=== PATIENT | male | born 1960 | race Caucasian/White ===

== ENCOUNTER → 2018-02-18 | Outpatient (CLI) | payer OTHER ==
[2018-02-18 12:01] LABS: ADD MAN DIFF? NO
[2018-02-18 12:20] LABS: BASO # 0.1 x10^3/uL (0.0-0.2); BASO % 1 % (0-3); EOS # 0.2 x10^3/uL (0.0-0.7); EOS % 3 % (0-3); HEMATOCRIT 41.3 % (39.0-53.0); HEMOGLOBIN 14.2 g/dL (13.0-17.5); LYMPH # 1.8 x10^3/uL (1.0-4.8); LYMPH % 26 % (24-48); MEAN CORPUSCULAR HEMOGLOBIN 31 pg (25-35); MEAN CORPUSCULAR HGB CONC 34 g/dL (31-37); MEAN CORPUSCULAR VOLUME 91 fL (79-100); MONO # 0.6 x10^3/uL (0.0-1.1); MONO % 9 % (0-9); NEUT # 4.1 x10^3uL (1.8-7.7); NEUT % 61 % (31-73); PLATELET COUNT 210 x10^3/uL (140-400); RED BLOOD COUNT 4.54 x10^6/uL (4.30-5.70); RED CELL DISTRIBUTION WIDTH 13.4 % (11.5-14.5); WHITE BLOOD COUNT 6.7 x10^3/uL (4.0-11.0)
[2018-02-18 12:28] LABS: ALBUMIN 3.6 g/dL (3.4-5.0); ALBUMIN/GLOBULIN RATIO 1.1 (1.0-1.7); ALK PHOS 84 U/L (46-116); ALT (SGPT) 64 U/L (16-63); ANION GAP 4 (6-14); AST (SGOT) 36 U/L (15-37); BLOOD UREA NITROGEN 13 mg/dL (8-26); BUN/CREATININE RATIO 13 (6-20); CALCIUM 9.1 mg/dL (8.5-10.1); CARBON DIOXIDE 30 mmol/L (21-32); CHLORIDE 105 mmol/L (98-107); CHOLESTEROL 111 mg/dL (0-200); GFR 76.2; GLUCOSE 183 mg/dL (70-99); HDLC 36 mg/dL (40-60); LDLC 66 mg/dL (0-100); NON-HDL CHOLESTEROL 75 mg/dL (0-129); POTASSIUM 4.6 mmol/L (3.5-5.1); SODIUM 139 mmol/L (136-145); TOTAL BILIRUBIN 0.5 mg/dL (0.2-1.0); TOTAL PROTEIN 6.9 g/dL (6.4-8.2); TRIGLYCERIDES 45 mg/dL (0-150); VLDLC 9 mg/dL (0-40)
[2018-02-18 12:32] LABS: CHOLESTEROL/HDL RATIO 3.1
[2018-02-18 12:38] LABS: THYROID STIM HORMONE (TSH) 0.854 uIU/mL (0.358-3.74)
[2018-02-18 18:14] LABS: FREE T4 1.12 ng/dL (0.76-1.46)
[2018-02-19 01:14] LABS: MICROALBUMIN, RANDOM URINE <3.0 ug/mL (Not Estab.)
[2018-02-19 08:00] LABS: HEMOGLOBIN A1C 8.1 % (4.8-5.6)
== END | disposition home or self-care (01) ==
LOC: LAB 11:41
DX: I10 Essential (primary) hypertension (principal); E78.00 Pure hypercholesterolemia, unspecified; E10.9 Type 1 diabetes mellitus without complications
CPT/HCPCS: 36415; 80053; 80061; 82043; 83036; 84439; 84443; 85025

== ENCOUNTER → 2018-04-15 | Outpatient (CLI) | payer OTHER ==
[2015-08-17 07:00] VITALS: BP 153/86
[2018-04-15 12:25] LABS: ALBUMIN 3.6 g/dL (3.4-5.0); CALCIUM 9.5 mg/dL (8.5-10.1); GFR 76.2; POTASSIUM 4.8 mmol/L (3.5-5.1); TOTAL BILIRUBIN 0.4 mg/dL (0.2-1.0); TOTAL PROTEIN 7.1 g/dL (6.4-8.2)
[2018-04-16 01:12] LABS: HEMOGLOBIN A1C 8.4 % (4.8-5.6)
== END | disposition home or self-care (01) ==
LOC: LAB 11:47
PROVIDERS: ATTEND Internal Medicine Endocrinology, Diabetes & Metabolism
DX: E11.9 Type 2 diabetes mellitus without complications (principal); I10 Essential (primary) hypertension; E78.00 Pure hypercholesterolemia, unspecified; I25.2 Old myocardial infarction; Z87.891 Personal history of nicotine dependence
CPT/HCPCS: 80053; 83036; 84681

== ENCOUNTER → 2018-05-15 | Day surgery (SDC) | payer OTHER ==
[~2018-05-15] MED LIST: AMLO5TAB4 PO; BYSTOLIC10 MG PO; CLOP75TA PO; INSU100C SQ; INSU100I13 SQ; IV RINGERS,LACTATED 1000ML 1,000 ML IV SCH; LIDOCAINE 1% PF 2 ML VIAL. ONE; LOSA1TAB19 PO; OMEP40CA5 PO; PROPOFOL 40 ML IV ONE
--- NOTE | 2018-05-15 13:51 | PDOC ---
GI PROGRESS NOTES Date Date/Time DATE: 05/15/18 TIME: 13:49 Subjective Subjective here for screening colonoscopy also has hx of GERD, hoarsenss Objective Vitals Vital Signs Date Time Temp Pulse Resp B/P (MAP) Pulse Ox O2 Delivery O2 Flow Rate FiO2 05/15/18 12:46 97.8 74 20 98 97.8 Labs Labs Laboratory Tests Test 05/15/18 12:55 Glucose (Fingerstick) 237 mg/dL (70-99) Physical Exam Physical Exam Alert chest -clear cor - rrr abd- soft non tender Assessment Assessment Colon cancer screen- no change from prior office note GERD Plan Plan screening colonoscopy EGD RIKI LEWIS MD May 15, 2018 13:51
--- NOTE | 2018-05-15 13:59 | PDOC4 ---
PROCEDURE Procedure EGD GERD hoarseness anesthesia- propofol Findings- normal oropharynx, mild distal esophagitis with irreg Z line ? BArretts, mild gastritis o/w normal Plan- check biopsies continue therapy RIKI LEWIS MD May 15, 2018 13:59
--- NOTE | 2018-05-15 14:26 | PDOC4 ---
PROCEDURE Procedure Colonoscopy- screening anesthesia Findings- 2 ascending polyps, 4 descending polyps o/w normal check path repeat colonoscopy in 3-5 years RIKI LEWIS MD May 15, 2018 14:26
[2018-05-15 14:53] VITALS: BP 138/70
--- NOTE | 2018-05-18 16:08 | PATHOLOGY ---
[facility] Accession Number: [id number] . 01 Material submitted: . PART A: ANTRUM BIOPSY PART B: DISTAL ESOPHAGUS BIOPSY PART C: ASCENDING COLON POLYPS PART D: DESCENDING COLON POLYPS . 01 Clinical history: . Pre-OP DX: Screening, reflux Post-OP DX: Rule out H. pylori, rule out Retana's, polyps . 02 Diagnosis: A. Gastric biopsy, antrum: - Mild chronic gastritis. . B. Esophageal biopsies, distal esophagus: - Segments of esophagogastric and columnar lined mucosa showing focal moderate to marked active chronic inflammation and focal intestinal metaplasia with goblet cells consistent with Retana's change. . C. Colon biopsies, ascending colon polyps: - Tubular adenomas (2). . D. Colon biopsies, descending colon polyps: - Tubular adenomas. - Hyperplastic polyps. LBQ/05/18/2018 . 02 Comment: Sections of the gastric antral biopsy show congestion and mild chronic inflammation. An immunoperoxidase stain for Helicobacter is negative for Helicobacter organisms. Sections of the distal esophageal biopsy reveal segments of esophagogastric and columnar-lined mucosa showing focal moderate to marked active chronic inflammation and focal intestinal metaplasia with goblet cells consistent with Retana's change. There is no dysplasia or evidence of malignancy. Sections of the ascending colon biopsies reveal two segments of tubular adenoma and a single segment of colonic mucosa with a mucosal associated lymphoid aggregate. There is no high grade dysplasia or evidence of malignancy. Sections of the descending colon biopsies reveal four segments of tubular adenoma with the remaining biopsy segments revealing hyperplastic polyps. There is no high grade dysplasia or evidence of malignancy. (JPM/db; 05/18/18) . 02 Electronically signed: . Prince Guevara MD, Pathologist NPI- [id number] . 01 Gross description: . A. Received in formalin labeled "Michele, Dimitris, antrum BX," is a single segment of mathur soft tissue measuring 0.5 cm in maximum dimension. The specimen is entirely submitted in cassette A1. . B. Received in formalin labeled "Dimitris Bautista, distal esophagus BX," are 3 segments of mathur soft tissue measuring 0.8 x 0.5 x 0.2 cm in aggregate dimensions and ranging from 0.3 to 0.4 cm in maximum dimension. The specimen is submitted entirely in cassette B1. . C. Received in formalin labeled "Dimitris Bautista, ascending colon polyps," are 3 segments of mathur soft tissue measuring 0.8 x 0.6 x 0.2 cm in aggregate dimensions and ranging from 0.3 to 0.4 cm in maximum dimension. The specimen is submitted entirely in cassette C1. . D. Received in formalin labeled "Dimitris Bautista, descending colon polyps," are multiple segments of mathur soft tissue measuring 2.2 x 0.4 x 0.2 cm in aggregate dimensions. The specimen is filtered and entirely submitted in cassette D1. (TSD; 05/15/2018) TOB/TOB . 02 Pathologist provided ICD-10: D12.2, D12.4, K29.50, K20.9, K22.70, K63.5 . 02 CPT . 314349, 022619, 543167, 614596, [id number] Specimen Comment: A courtesy copy of this report has been sent to Specimen Comment: [phone], . Specimen Comment: Report sent to / DR AHMADI Specimen Comment: A duplicate report has been generated due to demographic updates. Performed at: 01 [facility] [address] [facility] [address], [place] [id number] MD Rafat Ruiz MD Phone: [phone] Performed at: 02 [facility] [address] [place] [id number] MD Prince Guevara MD Phone: [phone]
== END | disposition home or self-care (01) ==
LOC: ENDOS 12:23
PROVIDERS: ATTEND Internal Medicine Gastroenterology
DX: Z12.11 Encounter for screening for malignant neoplasm of colon (principal); D12.2 Benign neoplasm of ascending colon; D12.4 Benign neoplasm of descending colon; K63.5 Polyp of colon; K64.8 Other hemorrhoids; K29.50 Unspecified chronic gastritis without bleeding; K21.0 Gastro-esophageal reflux disease with esophagitis; J04.0 Acute laryngitis; K22.8 Other specified diseases of esophagus; R49.0 Dysphonia; E11.9 Type 2 diabetes mellitus without complications; I10 Essential (primary) hypertension
CPT/HCPCS: 43239; 45380; 45385; 82962; 88305; 88342; J2704

== ENCOUNTER → 2018-09-08 | Outpatient (CLI) | payer OTHER ==
[2018-05-15 14:53] VITALS: BP 138/70
[~2018-09-08] MED LIST changes: -IV RINGERS,LACTATED 1000ML 1,000 ML IV SCH; -LIDOCAINE 1% PF 2 ML VIAL. ONE; -PROPOFOL 40 ML IV ONE
[2018-09-08 10:36] LABS: HEMATOCRIT 41.4 % (39.0-53.0); RED BLOOD COUNT 4.61 x10^6/uL (4.30-5.70); RED CELL DISTRIBUTION WIDTH 12.9 % (11.5-14.5); WHITE BLOOD COUNT 5.2 x10^3/uL (4.0-11.0)
[2018-09-08 10:52] LABS: ALBUMIN 3.6 g/dL (3.4-5.0); ALBUMIN/GLOBULIN RATIO 1.1 (1.0-1.7); CALCIUM 9.5 mg/dL (8.5-10.1); CREATININE 1.1 mg/dL (0.7-1.3); GFR 68.3; POTASSIUM 4.5 mmol/L (3.5-5.1); TOTAL BILIRUBIN 0.6 mg/dL (0.2-1.0)
[2018-09-08 10:54] LABS: CHOLESTEROL/HDL RATIO 5.2
[2018-09-08 11:03] LABS: FREE T4 1.06 ng/dL (0.76-1.46); THYROID STIM HORMONE (TSH) 1.633 uIU/mL (0.358-3.74)
[2018-09-08 23:16] LABS: HEMOGLOBIN A1C 8.3 % (4.8-5.6)
== END | disposition home or self-care (01) ==
LOC: LAB 10:09
PROVIDERS: ATTEND Nurse Practitioner Family
DX: I10 Essential (primary) hypertension (principal); E78.5 Hyperlipidemia, unspecified; E10.9 Type 1 diabetes mellitus without complications
CPT/HCPCS: 36415; 80053; 80061; 83036; 84439; 84443; 85027

== ENCOUNTER 2019-04-11 01:15 | Emergency (ER) | payer OTHER ==
[~2019-04-11] VITALS: Ht 167.6 cm; Wt 90.7 kg
[2019-04-11 01:32] VITALS: BP 146/69
--- NOTE | 2019-04-11 01:55 | PHYS DOC ---
Past Medical History Past Medical History: Diabetes-Type II, Hypertension, [place] Past Surgical History: Angioplasty Additional Past Surgical Histo: STENTS Alcohol Use: Rarely Drug Use: None Adult General Chief Complaint Chief Complaint: INSECT BITE HPI HPI Patient is a 59-year-old male who presents with an insect bite on his left ankle. He states it really stings bad. States it doesn't itch. He took a tramadol in the pain is gone right through the tramadol[] Review of Systems Review of Systems Constitutional: Denies fever or chills [] Eyes: Denies change in visual acuity, redness, or eye pain [] HENT: Denies nasal congestion or sore throat [] Respiratory: Denies cough or shortness of breath [] Cardiovascular: No additional information not addressed in HPI [] GI: Denies abdominal pain, nausea, vomiting, bloody stools or diarrhea [] : Denies dysuria or hematuria [] Musculoskeletal: Denies back pain or joint pain [] Integument: Per history of present illness[] Neurologic: Denies headache, focal weakness or sensory changes [] Endocrine: Denies polyuria or polydipsia [] All other systems were reviewed and found to be within normal limits, except as documented in this note. Allergies Allergies Allergies Coded Allergies Type Severity Reaction Last Updated Verified No Known Drug Allergies 05/15/18 No Physical Exam Physical Exam Constitutional: Well developed, well nourished, no acute distress, non-toxic appearance. [] Abdomen: Bowel sounds normal, soft, no tenderness, no masses, no pulsatile masses. [] Skin: There is a tiny, 0.25 cm circular area of erythema consistent with nonvenomous bug bite near the left ankle[] Back: No tenderness, no CVA tenderness. [] Extremities: No tenderness, no cyanosis, no clubbing, ROM intact, no edema. [] . [] Current Patient Data Vital Signs Vital Signs Date Time Temp Pulse Resp B/P (MAP) Pulse Ox O2 Delivery O2 Flow Rate FiO2 04/11/19 01:32 97.8 76 12 146/69 (94) 97 Room Air 97.8 EKG EKG [] Radiology/Procedures Radiology/Procedures [] Course & Med Decision Making Course & Med Decision Making Pertinent Labs and Imaging studies reviewed. (See chart for details) [ED course: Evaluation reveals a 59-year-old male with a questionable bug bite. It is concerning that he took a tramadol for something this minor. I have let him know that all he will need for treatment from this point forward is hydrocortisone cream. He is certainly cleared for work immediately.] Brennaon Disclaimer Dragon Disclaimer This electronic medical record was generated, in whole or in part, using a voice recognition dictation system. Departure Departure Impression: Primary Impression: Insect bite Referrals: FLORESITA AHMADI APRN (PCP) Patient Instructions: Insect Bite Additional Instructions: Use hydrocortisone cream or ointment 2-3 times daily. Return to the emergency department as needed Problem Qualifiers Primary Impression: Insect bite Encounter type: initial encounter Site of insect bite: ankle Laterality: left Qualified Codes: S90.562A - Insect bite (nonvenomous), left ankle, initial encounter; W57.XXXA - Bitten or stung by nonvenomous insect and other nonvenomous arthropods, initial encounter MARYANNE MAX DO Apr 11, 2019 01:54
== END 2019-04-11 02:03 | disposition home or self-care (01) ==
LOC: ER 01:15
DX: S90.562A Insect bite (nonvenomous), left ankle, initial encounter (principal); E11.9 Type 2 diabetes mellitus without complications; I10 Essential (primary) hypertension; I25.2 Old myocardial infarction; Z95.5 Presence of coronary angioplasty implant and graft; W57.XXXA Bitten or stung by nonvenomous insect and other nonvenomous arthropods, initial encounter; Y93.89 Activity, other specified; Y92.89 Other specified places as the place of occurrence of the external cause; Y99.8 Other external cause status
CPT/HCPCS: 99281

== ENCOUNTER 2019-07-06 01:02 | Inpatient (IN) | payer OTHER ==
[~2019-07-06] VITALS: Ht 167.6 cm; Wt 88.7 kg
[~2019-07-06 01:02] MED LIST changes: +OMEP40CA45 PO; -OMEP40CA5 PO
--- NOTE | 2019-07-06 01:52 | PHYS DOC ---
Past Medical History Past Medical History: Diabetes-Type II, Hypertension, [place] Past Surgical History: Angioplasty Additional Past Surgical Histo: STENTS Alcohol Use: Rarely Drug Use: None Adult General Chief Complaint Chief Complaint: NAUSEA/VOMITING/DIARRHA HPI HPI Patient is a 59 year old male with history of insulin-dependent diabetes who presents with acute onset nausea vomiting with diarrhea. Symptom onset was 90 minutes prior to ED arrival. Patient vomited multiple times and has had multiple loose/watery stools. He had 3 syncopal episodes prior to ED arrival. Ports diffuse mid epigastric abdominal pain. Emesis contains stomach contents. Patient last ate approximately 8 PM give himself NovoLog and 15 units of Lantus at that time. No prior abdominal surgeries. No history of bowel obstructions. No other acute symptoms or complaints.[] Review of Systems Review of Systems Review of symptoms as per history of present illness. All other review symptoms are negative. All other systems were reviewed and found to be within normal limits, except as documented in this note. Current Medications Current Medications Current Medications Medications (Trade) Dose Ordered Sig/Juanpablo Start Time Stop Time Status Last Admin Dose Admin Dextrose (Dextrose 50%-Water Syringe) 12.5 gm 1X ONCE 07/06/19 02:15 07/06/19 02:16 DC 07/06/19 02:18 12.5 GM Famotidine (Pepcid Vial) 20 mg 1X ONCE 07/06/19 02:00 07/06/19 02:01 DC 07/06/19 02:00 20 MG Haloperidol Lactate (Haldol Inj) 1.25 mg 1X ONCE 07/06/19 02:00 07/06/19 02:01 DC 07/06/19 02:00 1.25 MG Ondansetron HCl (Zofran) 8 mg 1X ONCE 07/06/19 02:00 07/06/19 02:01 DC 07/06/19 02:01 8 MG Allergies Allergies Allergies Coded Allergies Type Severity Reaction Last Updated Verified No Known Drug Allergies 05/15/18 No Physical Exam Physical Exam Constitutional: Ashen and acutely ill-appearing with uncontrolled retching and vomiting, [] HENT: Normocephalic, atraumatic, bilateral external ears normal, oropharynx moist nose normal. [] Eyes: PERRLA, EOMI, conjunctiva normal, no discharge. [] Neck: Normal range of motion, no tenderness, supple, no stridor. [] Cardiovascular:Heart rate regular rhythm, no murmur [] Lungs & Thorax: Bilateral breath sounds clear to auscultation [] Abdomen: Bowel sounds normal, soft, epigastric abdominal pain.. [] Skin: Ashen. [] Back: No tenderness, no CVA tenderness. [] Neurologic: Alert and oriented X 3, normal motor function, normal sensory function, no focal deficits noted. [] Psychologic: Affect normal, judgement normal, mood normal. [] Current Patient Data Vital Signs Vital Signs Date Time Temp Pulse Resp B/P (MAP) Pulse Ox O2 Delivery O2 Flow Rate FiO2 07/06/19 01:05 96.8 68 18 122/56 (78) 92 Room Air 96.8 Lab Values Laboratory Tests Test 07/06/19 02:03 07/06/19 02:04 Glucose (Fingerstick) 65 mg/dL (70-99) L White Blood Count 15.8 x10^3/uL (4.0-11.0) H Red Blood Count 4.79 x10^6/uL (4.30-5.70) Hemoglobin 14.6 g/dL (13.0-17.5) Hematocrit 43.4 % (39.0-53.0) Mean Corpuscular Volume 91 fL (79-100) Mean Corpuscular Hemoglobin 30 pg (25-35) Mean Corpuscular Hemoglobin Concent 34 g/dL (31-37) Red Cell Distribution Width 13.4 % (11.5-14.5) Platelet Count 241 x10^3/uL (140-400) Neutrophils (%) (Auto) 87 % (31-73) H Lymphocytes (%) (Auto) 5 % (24-48) L Monocytes (%) (Auto) 7 % (0-9) Eosinophils (%) (Auto) 0 % (0-3) Basophils (%) (Auto) 1 % (0-3) Neutrophils # (Auto) 13.8 x10^3/uL (1.8-7.7) H Lymphocytes # (Auto) 0.8 x10^3/uL (1.0-4.8) L Monocytes # (Auto) 1.1 x10^3/uL (0.0-1.1) Eosinophils # (Auto) 0.1 x10^3/uL (0.0-0.7) Basophils # (Auto) 0.1 x10^3/uL (0.0-0.2) Platelet Estimate Pending Sodium Level 141 mmol/L (136-145) Potassium Level 4.3 mmol/L (3.5-5.1) Chloride Level 105 mmol/L (98-107) Carbon Dioxide Level 30 mmol/L (21-32) Anion Gap 6 (6-14) Blood Urea Nitrogen 22 mg/dL (8-26) Creatinine 1.6 mg/dL (0.7-1.3) H Estimated GFR (Cockcroft-Gault) 44.2 BUN/Creatinine Ratio 14 (6-20) Glucose Level 74 mg/dL (70-99) Lactic Acid Level 2.3 mmol/L (0.4-2.0) H Calcium Level 10.1 mg/dL (8.5-10.1) Total Bilirubin 0.4 mg/dL (0.2-1.0) Aspartate Amino Transferase (AST) 27 U/L (15-37) Alanine Aminotransferase (ALT) 34 U/L (16-63) Alkaline Phosphatase 95 U/L (46-116) Troponin I Quantitative < 0.017 ng/mL (0.000-0.055) Total Protein 7.5 g/dL (6.4-8.2) Albumin 3.9 g/dL (3.4-5.0) Albumin/Globulin Ratio 1.1 (1.0-1.7) Lipase 56 U/L (73-393) L Acetone Level Neg (NEG) Laboratory Tests 07/06/19 02:04 Laboratory Tests 07/06/19 02:04 EKG EKG [EKG: reviewed] Radiology/Procedures Radiology/Procedures [] Course & Med Decision Making Course & Med Decision Making Pertinent Labs and Imaging studies reviewed. (See chart for details) [Blood sugar 65. D50 given. Will admit to the hospitalist service for further evaluation and treatment and close monitoring of blood sugar.] Dragon Disclaimer Dragon Disclaimer This electronic medical record was generated, in whole or in part, using a voice recognition dictation system. Departure Departure Impression: Primary Impression: Intractable nausea and vomiting Additional Impression: Diabetes mellitus type 1, uncontrolled, insulin dependent Disposition: ADMITTED INPATIENT Condition: STABLE Referrals: FLORESITA AHMADI APRN (PCP) Problem Qualifiers ALLYN MIGUEL DO Jul 06, 2019 01:52
[2019-07-06] MEDS ORDERED: HALOPERIDOL LACTATE 5 MG/ML VIAL. IVP ONE (02:00)
[2019-07-06] MEDS ORDERED: ONDANSETRON PF 4 MG/2 ML VIAL. IVP ONE (02:00)
[2019-07-06] MEDS ORDERED: FAMOTIDINE 20 MG/2 ML VIAL IVP ONE (02:00)
[2019-07-06] MEDS ORDERED: DEXTROSE 50% 25 GM / 50ML DISP.SYRIN. IV ONE ×2 (02:07→02:15)
[2019-07-06 02:13] LABS: BASO # 0.1 x10^3/uL (0.0-0.2); BASO % 1 % (0-3); EOS # 0.1 x10^3/uL (0.0-0.7); EOS % 0 % (0-3); HEMATOCRIT 43.4 % (39.0-53.0); HEMOGLOBIN 14.6 g/dL (13.0-17.5); LYMPH # 0.8 x10^3/uL (1.0-4.8); LYMPH % 5 % (24-48); MEAN CORPUSCULAR HEMOGLOBIN 30 pg (25-35); MEAN CORPUSCULAR HGB CONC 34 g/dL (31-37); MEAN CORPUSCULAR VOLUME 91 fL (79-100); MONO # 1.1 x10^3/uL (0.0-1.1); MONO % 7 % (0-9); NEUT # 13.8 x10^3/uL (1.8-7.7); NEUT % 87 % (31-73); PLATELET COUNT 241 x10^3/uL (140-400); RED BLOOD COUNT 4.79 x10^6/uL (4.30-5.70); RED CELL DISTRIBUTION WIDTH 13.4 % (11.5-14.5); WHITE BLOOD COUNT 15.8 x10^3/uL (4.0-11.0)
[2019-07-06 02:22] LABS: CALCIUM 10.1 mg/dL (8.5-10.1); CREATININE 1.6 mg/dL (0.7-1.3); GFR 44.2; POTASSIUM 4.3 mmol/L (3.5-5.1)
[2019-07-06 02:27] LABS: ALBUMIN 3.9 g/dL (3.4-5.0); ALBUMIN/GLOBULIN RATIO 1.1 (1.0-1.7); TOTAL BILIRUBIN 0.4 mg/dL (0.2-1.0); TOTAL PROTEIN 7.5 g/dL (6.4-8.2)
[2019-07-06 03:06] LABS: % BANDS 2 % (0-9); % EOS 1 % (0-5); % LYMPHS 4 % (24-48); % MONOS 10 % (0-10); % SEGS 83 % (35-66); PLT ESTIMATE ADEQUATE (ADEQUATE)
[2019-07-06] MEDS ORDERED: IV DEXTROSE 5 %-0.45 % NACL 1,000 ML IV ONE (03:15)
[2019-07-06] MEDS ORDERED: ONDANSETRON PF 4 MG/2 ML VIAL. IV PRN (03:15)
[2019-07-06 04:01] VITALS: BP 138/67
[2019-07-06 07:00] VITALS: BP 128/77
--- NOTE | 2019-07-06 07:21 | EKG ---
[facility] [address] [place] [address] Test Date: 2019-07-06 Test Time: 02:18:24 Pat Name: TODD BUSTAMANTE Department: Room: Gender: M [employer]: : 1960 Requested By: ALLYN MIGUEL Order Number: [id number] Reading MD: Measurements Intervals [place] Rate: 71 P: 48 TX: 150 QRS: 41 QRSD: 72 T: 73 QT: 386 QTc: 424 Interpretive Statements SINUS RHYTHM QRS(T) CONTOUR ABNORMALITY CONSISTENT WITH ANTEROSEPTAL INFARCT AGE UNDETERMINED ABNORMAL ECG RI6.01 No previous ECG available for comparison
[2019-07-06 11:00] VITALS: BP 141/73
[2019-07-06] MEDS ORDERED: amLODIPine BESYLATE 5 MG TABLET PO SCH (11:30)
[2019-07-06] MEDS ORDERED: hydroCHLOROthiazide 12.5 MG CAPSULE PO SCH (12:00)
[2019-07-06] MEDS ORDERED: LOSARTAN POTASSIUM 50 MG TABLET. PO SCH (12:00)
[2019-07-06] MEDS ORDERED: CLOPIDOGREL BISULFATE 75 MG TABLET PO SCH (12:00)
--- NOTE | 2019-07-06 12:24 | SSS ---
ADMIT DATE: 07/06/2019 CHIEF COMPLAINT: Syncope, nausea and vomiting. HISTORY OF PRESENT ILLNESS: The patient is a pleasant middle-aged white male, who appears younger than his stated age. He is actually 59, but looks about 43 or 48. Basically, he ate some chicken yesterday. He states the chicken was bloody when he noticed he was to the middle of it. He later had a syncopal episode, also had some associated nausea and vomiting. He was admitted overnight for observation. This morning, he is alert and oriented, wanting to go home. I am going to consult Cardiology and Neurology just to make sure that we have not overlooked things, but overall I think he probably go home this afternoon. PAST MEDICAL HISTORY: Hypertension, hyperlipidemia, diabetes, and GERD. Myocardial infarction and angioplasty with stents. ALLERGIES: None. FAMILY HISTORY: Hypertension. SOCIAL HISTORY: He works as a manager audio in our Emergency Room. He does not drink, smoke or take drugs. MEDICATIONS: Reviewed, please refer to the MRAD. He is on 7 meds including Plavix, Bystolic, Norvasc, losartan, omeprazole, Lantus and Humalog. REVIEW OF SYSTEMS: GENERAL: No history of weight change, weakness or fevers. SKIN: No bruising, hair changes or rashes. EYES: No blurred, double or loss of vision. NOSE AND THROAT: No history of nosebleeds, hoarseness or sore throat. HEART: No history of palpitations, chest pain or shortness of breath on exertion. LUNGS: Denies cough, hemoptysis, wheezing or shortness of breath. GASTROINTESTINAL: Denies changes in appetite, nausea, vomiting, diarrhea or constipation. GENITOURINARY: No history of frequency, urgency, hesitancy or nocturia. NEUROLOGIC: Denies history of numbness, tingling, tremor or weakness. PSYCHIATRIC: No history of panic, anxiety or depression. ENDOCRINE: No history of heat or cold intolerance, polyuria or polydipsia. EXTREMITIES: Denies muscle weakness, joint pain, pain on walking or stiffness. PHYSICAL EXAMINATION: VITALS: Within normal limits and are stable. GENERAL: No apparent distress. Alert and oriented. HEENT: Normal cephalic atraumatic, external auditory canals are patent. EYES: Extraocular muscles are intact, pupils are equally round and reactive to light and accommodation. MUSKULOSKELETAL: Well developed, well nourished, good range of motion. ENDOCRINE: No thyromegaly was palpated. LYMPHATICS: No cervical chain or axillary nodes were noted. HEMATOPOIETIC: No bruising. NECK: Supple, no JVD, no thyromegaly was noted. LUNGS: Clear to auscultation in all lung benoit without rhonchi or wheezing. HEART: RRR, S1, S2 present. Peripheral pulses intact, no obvious murmurs were noted. ABDOMEN: He has distended abdomen, but I think this is his baseline. EXTREMITIES: Without any cyanosis, clubbing, or edema. Pedal pulses intact, Homans sign is negative. NEUROLOGIC: Normal speech, normal tone. A & O x3, moves all extremities, no obvious focal deficits. PSYCHIATRIC: Normal affect, normal mood. Stable. SKIN: No ulcerations or rashes, good skin turgor, no jaundice. VASCULAR: Good capillary refill, neurovascular bundle appears to be intact. LABORATORY DATA: White count was 15.8, hemoglobin 14, and platelets 241. Sodium is 141, potassium 4.3, chloride 105, bicarbonate 30, BUN 22, creatinine 1.6, glucose ranging from 223 to 65. Acetone level was negative. Troponin was 0. Lactic acid was high last night at 2.3, now is 1.7. ASSESSMENT AND PLAN: Resolving syncopal episode after nausea, vomiting, and eating some raw chicken suspect he may have had gastroenteritis. We did have an incidental finding of leukocytosis. Clinically, he looks great to go. I have consulted Cardiology and Neurology, but if okay with them, we will let him go this afternoon. For now, we will continue cardiac monitoring. DISPOSITION: Home. ACTIVITY: As tolerated. DIET: Cardiac. MEDICATIONS: Please see the MRAD. TOTAL TIME: 32 minutes. DORIEL Manisha BYNUM DO DR: FERNANDA/radha JOB#: [id number] / [id number]
[2019-07-06] MEDS ORDERED: INSULIN LISPRO 300 UNITS/3 ML VIAL. SQ ONE (14:15)
--- NOTE | 2019-07-06 15:08 | RAD ---
PQRS Compliance statement: One or more of the following individualized dose reduction techniques were utilized for this examination: 1. Automated exposure control. 2. Adjustment of the mA and/or kV according to patient size. 3. Use of iterative reconstruction technique. Indication: Seizure. TECHNIQUE: CT head without IV contrast COMPARISON: 08/17/2015 FINDINGS: No pathologic extra-axial or intra-axial fluid collection. The ventricles and basal cisterns are within normal limits. No acute intracranial bleed. No focal loss of cote-white differentiation. Visualized orbits within normal limits. No suspicious calvarial lesion. Visualized paranasal sinuses and mastoid air cells are clear. IMPRESSION: No acute intracranial process on this noncontrast CT. If concern for acute ischemic stroke is high, please consider MRI brain. Electronically signed by: Ryan Flower DO (07/06/2019 3:05 PM) [id number]
[2019-07-06 15:29] VITALS: BP 146/74
--- NOTE | 2019-07-06 15:37 | PDOC2 ---
BROOKE WEBER NURSE ADVOCATE 07/06/19 1537: CARDIAC CONSULT DATE OF CONSULT Date of Consult DATE: 07/06/19 TIME: 1300 REASON FOR CONSULT Reason for Consult: syncope REFERRING PHYSICIAN Referring Physician: Isaiah SOURCE Source: Chart review, Patient HISTORY OF PRESENT ILLNESS HISTORY OF PRESENT ILLNESS This is a pleasant 59 yo male admitted for complains of passing out. Reports that he was playing pool when this occurred. He felt dizzy and fell backward to the chair and it is unclear how long he was unconscious. Prior to this occurring, he ate a chicken which he said tasted funny. A little later he felt that he was having abd cramps and felt that his BG was dropping. He went to the [facility] and had 3 large solid BMs then followed by watery stools. He checked his BG and noted that his BG was in the upper 60s then 70s. He has continuous BG monitoring device to his RA. He took some glucose tabs and felt that this should do it given that he also ate solid food. He became nauseated at some point and also vomited. He also used to take zocor but stopped as he was told by an ED physician that he could stop it. No recent fever, falls or any injury. No past hx of arrhythmias or VTE. Denies any CP, SOA or frequent dizziness. PAST MEDICAL HISTORY Cardiovascular: CAD, HTN, Hyperlipidemia Pulmonary: No pertinent hx CENTRAL NERVOUS SYSTEM: Other (No pertinent history) GI: GERD Heme/Onc: No pertinent hx Hepatobiliary: No pertinent hx Psych: No pertinent hx Musculoskeletal: Osteoarthritis Rheumatologic: No pertinent hx Infectious disease: No pertinent hx ENT: No pertinent hx Renal/: No pertinent hx Endocrine: Diabetes Dermatology: No pertinent hx PAST SURGICAL HISTORY Past Surgical History: Arthroscopy (bilateral knee), Other (PCI) FAMILY HISTORY Family History: Coronary Artery Disease SOCIAL HISTORY Smoke: Quit ALCOHOL: none Drugs: None Lives: with Family CURRENT MEDICATIONS CURRENT MEDICATIONS Current Medications Medications (Trade) Dose Ordered Sig/Juanpablo Route PRN Reason Start Time Stop Time Status Last Admin Dose Admin Ondansetron HCl (Zofran) 8 mg 1X ONCE IVP 07/06/19 02:00 07/06/19 02:01 DC 07/06/19 02:01 Famotidine (Pepcid Vial) 20 mg 1X ONCE IVP 07/06/19 02:00 07/06/19 02:01 DC 07/06/19 02:00 Haloperidol Lactate (Haldol Inj) 1.25 mg 1X ONCE IVP 07/06/19 02:00 07/06/19 02:01 DC 07/06/19 02:00 Dextrose (Dextrose 50%-Water Syringe) 12.5 gm 1X ONCE IV 07/06/19 02:15 07/06/19 02:16 DC 07/06/19 02:18 Dextrose/Sodium Chloride 1,000 ml @ 125 mls/hr 1X ONCE IV 07/06/19 03:15 07/06/19 11:14 DC 07/06/19 03:25 Clopidogrel Bisulfate (Plavix) 75 mg DAILY07 PO 07/06/19 12:00 07/06/19 14:49 Losartan Potassium (Cozaar) 50 mg DAILY PO 07/06/19 12:00 07/06/19 12:00 Insulin Human Lispro (HumaLOG) 20 units 1X ONCE SQ 07/06/19 14:15 07/06/19 14:18 DC 07/06/19 15:00 ALLERGIES ALLERGIES: Coded Allergies: No Known Drug Allergies (Unverified , 05/15/18) ROS Review of System 14 point ROS evaluated with pertinent positives noted per HPI PHYSICAL EXAM General: Alert, Oriented X3, Cooperative, No acute distress HEENT: Atraumatic, Mucous membr. moist/pink Lungs: Clear to auscultation, Normal air movement Heart: Regular rate (SR), Normal S1, Normal S2, No murmurs Abdomen: Soft, No tenderness Extremities: No cyanosis, No edema Skin: No breakdown, No significant lesion Neuro: Normal speech, Sensation intact Psych/Mental Status: Mental status NL, Mood NL MUSCULOSKELETAL: Osteoarthritic changes both hands VITALS/I&O VITALS/I&O: Vital Signs Date Time Temp Pulse Resp B/P (MAP) Pulse Ox O2 Delivery O2 Flow Rate FiO2 07/06/19 12:00 83 141/73 07/06/19 11:00 98.9 18 96 Room Air 98.9 I & O 07/05/19 07/05/19 07/06/19 15:00 23:00 07:00 Intake Total 0 ml Balance 0 ml LABS Lab: Laboratory Tests Test 07/06/19 02:03 07/06/19 02:04 07/06/19 02:37 07/06/19 06:36 Glucose (Fingerstick) 65 mg/dL (70-99) L 124 mg/dL (70-99) H White Blood Count 15.8 x10^3/uL (4.0-11.0) H Red Blood Count 4.79 x10^6/uL (4.30-5.70) Hemoglobin 14.6 g/dL (13.0-17.5) Hematocrit 43.4 % (39.0-53.0) Mean Corpuscular Volume 91 fL (79-100) Mean Corpuscular Hemoglobin 30 pg (25-35) Mean Corpuscular Hemoglobin Concent 34 g/dL (31-37) Red Cell Distribution Width 13.4 % (11.5-14.5) Platelet Count 241 x10^3/uL (140-400) Neutrophils (%) (Auto) 87 % (31-73) H Lymphocytes (%) (Auto) 5 % (24-48) L Monocytes (%) (Auto) 7 % (0-9) Eosinophils (%) (Auto) 0 % (0-3) Basophils (%) (Auto) 1 % (0-3) Neutrophils # (Auto) 13.8 x10^3/uL (1.8-7.7) H Lymphocytes # (Auto) 0.8 x10^3/uL (1.0-4.8) L Monocytes # (Auto) 1.1 x10^3/uL (0.0-1.1) Eosinophils # (Auto) 0.1 x10^3/uL (0.0-0.7) Basophils # (Auto) 0.1 x10^3/uL (0.0-0.2) Segmented Neutrophils % 83 % (35-66) H Band Neutrophils % 2 % (0-9) Lymphocytes % 4 % (24-48) L Monocytes % 10 % (0-10) Eosinophils % 1 % (0-5) Platelet Estimate Adequate (ADEQUATE) Sodium Level 141 mmol/L (136-145) Potassium Level 4.3 mmol/L (3.5-5.1) Chloride Level 105 mmol/L (98-107) Carbon Dioxide Level 30 mmol/L (21-32) Anion Gap 6 (6-14) Blood Urea Nitrogen 22 mg/dL (8-26) Creatinine 1.6 mg/dL (0.7-1.3) H Estimated GFR (Cockcroft-Gault) 44.2 BUN/Creatinine Ratio 14 (6-20) Glucose Level 74 mg/dL (70-99) Lactic Acid Level 2.3 mmol/L (0.4-2.0) H 1.7 mmol/L (0.4-2.0) Calcium Level 10.1 mg/dL (8.5-10.1) Total Bilirubin 0.4 mg/dL (0.2-1.0) Aspartate Amino Transferase (AST) 27 U/L (15-37) Alanine Aminotransferase (ALT) 34 U/L (16-63) Alkaline Phosphatase 95 U/L (46-116) Troponin I Quantitative < 0.017 ng/mL (0.000-0.055) Total Protein 7.5 g/dL (6.4-8.2) Albumin 3.9 g/dL (3.4-5.0) Albumin/Globulin Ratio 1.1 (1.0-1.7) Lipase 56 U/L (73-393) L Acetone Level Neg (NEG) Test 07/06/19 07:44 07/06/19 11:33 Glucose (Fingerstick) 80 mg/dL (70-99) 223 mg/dL (70-99) H Laboratory Tests 07/06/19 02:04 Laboratory Tests 07/06/19 02:04 ASSESSMENT/PLAN ASSESSMENT/PLAN 1. Syncope with aborted fall: due to dehydration and hypoglycemia with potential subsequent episode of vasovagal reaction 2. DM2 with hypoglycemic reaction: insulin dependent 3. Obesity 4. CAD: past stents, CP free. 5. HTN: controlled 6. HLP 7. Diarrhea/vomiting: possibly food poisoning. none since yesterday Recommendations 1. Insulin dosing adjustment per PCP. hypoglycemia s/s typically occurs in the 60s per pt 2. Continue with secondary prevention measures including baby ASA and plavix. Continue with BP regimen 3. outpt TTE. Follow up in office August [address] Pratt 4. Lipids, and will start on statin per level GERARD PRATT MD 07/07/19 0748: CARDIAC CONSULT ASSESSMENT/PLAN ASSESSMENT/PLAN Late entry for 07/06/2019 Patient seen and evaluated. Agree with above nurse practitioner note. No acute cardiac concerns at this time. He has a remote history of cardiac pathology. Plan as noted above. Discussed with the patient and his BROOKE WEBER APRN Jul 06, 2019 15:37 GERARD PRATT MD Jul 07, 2019 07:48
[2019-07-06] MEDS ORDERED: ASPIRIN ENTERIC COATED 81 MG TABLET.DR. PO SCH (16:00)
[2019-07-06 16:04] LABS: CHOLESTEROL/HDL RATIO 7.2
[2019-07-06 17:17] LABS: BARBITURATES NEG (NEG); BENZODIAZEPINES NEG (NEG); CANNABINOIDS NEG (NEG); COCAINE NEG (NEG); METHADONE NEG (NEG); OPIATES NEG (NEG); PHENCYCLIDINE NEG (NEG)
[2019-07-06 17:18] LABS: AMPHETAMINE/METHAMPHETAMINE NEG (NEG)
[2019-07-06 19:44] VITALS: BP 153/78
--- NOTE | 2019-07-06 20:21 | NUR ---
Pt has been given discharge instructions and informed to follow-up with Dr. Domínguez and follow-up with outpatient for EEG. Called EEG lab and informed to fax order sheet and face sheet. Information has been faxed and pt informed to call and schedule appt if he does not here from them. Pt verbalize understanding. Pt discharge medications reviewed. Pt and verbalize understanding. Pt transported to car with assistance of staff. No complaints noted.
[2019-07-06] MEDS ORDERED: METOPROLOL TART IMMED RELEASE 50 MG TABLET. PO SCH (21:00)
[2019-07-06] MEDS ORDERED: ATORVASTATIN CALCIUM 40 MG TABLET. PO SCH (21:00)
--- NOTE | 2019-07-06 21:25 | PDOC2 ---
NEUROLOGY CONSULT Date of Admission Date of Admission DATE: 07/06/19 TIME: 21:15 Reason for Consult Reason for Consult: IMPRESSION: Syncopal spell. Seizure evaluation. Acute gastroenteritis. Leukocytosis. Nausea. Vomiting. Diarrhea. Abdominal pain. DM. Obesity. RECOMMENDATIONS/PLAN: Treat medical diseases. Keep good hydration. EEG. Lab: see orders. HCT negative. Consulted cardiology. HISTORY OF PRESENT ILLNESS This is a 59 -year-old white male patient with history of insulin-dependent diabetes who presents to the ER of [facility] with acute onset symptoms of nausea, vomiting and diarrhea. His symptom started about 90 minutes prior to ED arrival. He vomited multiple times and had multiple loose/watery stools. He had 3 syncopal episodes prior to ED arrival. Ports diffuse mid epigastric abdominal pain after eating not well cooked chicken. Neurology was requested for consultation to help rule out seizure. PAST MEDICAL HISTORY Cardiovascular: CAD, HTN, Hyperlipidemia Pulmonary: No pertinent hx CENTRAL NERVOUS SYSTEM: Other (No pertinent history) GI: GERD Heme/Onc: No pertinent hx Hepatobiliary: No pertinent hx Psych: No pertinent hx Musculoskeletal: Osteoarthritis Rheumatologic: No pertinent hx Infectious disease: No pertinent hx ENT: No pertinent hx Renal/: No pertinent hx Endocrine: Diabetes Dermatology: No pertinent hx PAST SURGICAL HISTORY Arthroscopy (bilateral knee), Other (PCI) FAMILY HISTORY Coronary Artery Disease SOCIAL HISTORY Smoke: Quit ALCOHOL: none Drugs: None Lives: with Family ALLERGY: NKDA MEDICATIONS: Refer to MAR REVIEW OF SYSTEMS: Constitutional: No malnutrition, weight loss, cachexia. Head: No traumatic brain or head injury. Skin: No edema, or rash. Ear: No infection. Eyes: No vision loss or color blindness. Nose: No bleeding or purulent discharges. Hearing: No hearing decrease. Neck: No injury. Cardiac: HTN, HLD. Pulmonary: No COPD. GI: No GI ulcer, GI bleeding. Urinary/genital: No dysuria, incontinence, urinary retention. Endocrinologic: Diabetes Mellitus, obesity. Skeletomuscular: No muscular atrophy, deformity. Neurological: see HP. Psychiatric: Denies drug use/abuse. Otherwise, not [id number] review of systems. PHYSICAL EXAMINATION: General appearance is in subacute distress. HEENT: Normocephalic and nontraumatic. Eyes, nose, ears, and throat are unremarkable. Neck is supple. No lymphadenopathy. No crepitus. Cardiovascular: S1, S2, regular rate and rhythm. Pulmonary: Clear to auscultation bilaterally. Abdomen: Bowel sounds are positive. Extremities: No rash, lesions, or edema. No restriction of range of motion NEUROLOGICAL EXAMINATION: Alert Oriented to time, place and person. PERRL. EOMI. CN: no focal findings. Muscle tone: within normal. Muscle strength: 5 DTR: 2 Plantar reflex: Flexor response bilaterally Gait: At baseline normal. Sensory exam: no abnormal findings. No cerebellar signs elicited. F-T-N test accurate. Current Medications Current Medications Current Medications Ondansetron HCl (Zofran) 8 mg 1X ONCE IVP Last administered on 07/06/19at 02:01; Start 07/06/19 at 02:00; Stop 07/06/19 at 02:01; Status DC Famotidine (Pepcid Vial) 20 mg 1X ONCE IVP Last administered on 07/06/19at 02:00; Start 07/06/19 at 02:00; Stop 07/06/19 at 02:01; Status DC Haloperidol Lactate (Haldol Inj) 1.25 mg 1X ONCE IVP Last administered on 07/06/19at 02:00; Start 07/06/19 at 02:00; Stop 07/06/19 at 02:01; Status DC Dextrose (Dextrose 50%-Water Syringe) 25 gm STK-MED ONCE IV ; Start 07/06/19 at 02:07; Stop 07/06/19 at 02:08; Status DC Dextrose (Dextrose 50%-Water Syringe) 12.5 gm 1X ONCE IV Last administered on 07/06/19at 02:18; Start 07/06/19 at 02:15; Stop 07/06/19 at 02:16; Status DC Ondansetron HCl (Zofran) 4 mg PRN Q8HRS PRN IV NAUSEA/VOMITING; Start 07/06/19 at 03:15; Stop 07/06/19 at 20:25; Status DC Dextrose/Sodium Chloride 1,000 ml @ 125 mls/hr 1X ONCE IV Last administered on 07/06/19at 03:25; Start 07/06/19 at 03:15; Stop 07/06/19 at 11:14; Status DC Amlodipine Besylate (Norvasc) 5 mg DAILY PO ; Start 07/06/19 at 11:30; Stop 07/06/19 at 20:25; Status DC Clopidogrel Bisulfate (Plavix) 75 mg DAILY07 PO Last administered on 07/06/19at 14:49; Start 07/06/19 at 12:00; Stop 07/06/19 at 20:25; Status DC Losartan Potassium (Cozaar) 50 mg DAILY PO Last administered on 07/06/19at 12:00; Start 07/06/19 at 12:00; Stop 07/06/19 at 20:25; Status DC Metoprolol Tartrate (Lopressor) 50 mg BID PO ; Start 07/06/19 at 21:00; Stop 07/06/19 at 20:25; Status DC Pantoprazole Sodium (Protonix) 40 mg DAILYAC PO ; Start 07/07/19 at 07:30; Stop 07/06/19 at 20:25; Status DC Hydrochlorothiazide (Microzide) 12.5 mg DAILY PO ; Start 07/06/19 at 12:00; Stop 07/06/19 at 20:25; Status DC Insulin Human Lispro (HumaLOG) 20 units 1X ONCE SQ Last administered on 07/06/19at 15:00; Start 07/06/19 at 14:15; Stop 07/06/19 at 14:18; Status DC Aspirin (Ecotrin) 81 mg DAILYWBKFT PO Last administered on 07/06/19at 16:00; Start 07/06/19 at 16:00; Stop 07/06/19 at 20:25; Status DC Atorvastatin Calcium (Lipitor) 40 mg QHS PO ; Start 07/06/19 at 21:00; Stop 07/06/19 at 20:25; Status DC Active Scripts Active Reported Omeprazole 40 Mg Capsule.dr 1 Cap PO DAILY Lantus Solostar (Insulin Glargine,Hum.rec.anlog) 100 Unit/1 Ml Insuln.pen 60 Unit SQ QHS Humalog (Insulin Lispro) 100 Unit/1 Ml Cartridge 100 Unit SQ Clopidogrel (Clopidogrel Bisulfate) 75 Mg Tablet 1 Tab PO DAILY Norvasc (Amlodipine Besylate) 5 Mg Tablet 1 Tab PO DAILY Bystolic (Nebivolol) 10 Mg Tablet 10 Mg PO DAILY Losartan-Hctz 50-12.5 Mg Tab (Losartan/Hydrochlorothiazide) 1 Each Tablet 1 Tab PO DAILY Allergies Allergies: Allergies Coded Allergies Type Severity Reaction Last Updated Verified No Known Drug Allergies 05/15/18 No ROS Review of System The patient denies any associated fevers, chills, headache, ear pain, rhinorrhea, sore throat, stiff neck, productive cough, chest pain, shortness of breath, back or flank pain, abdominal pain, nausea, vomiting, diarrhea, constipation, dysuria, rash, numbness, weakness, tingling, incontinence, difficulty ambulating, or diaphoresis. Physical Exam Physical Exam General: Well developed, well nourished, no acute distress, well appearing HEENT: Pupils equally round and reactive to light, EOMI, no discharge, normal conjunctiva Neck: Supple, no nuchal rigidity, no JVD, trachea midline, no tenderness Cardiac: RRR, no murmurs, no gallops, no rubs Chest/Lungs: CTAB, no wheeze, no rhonchi, no crackles Abdomen: soft, non-distended, no guarding, no peritoneal signs, non-tender Back: No tenderness Extremities: no edema, pulses intact, non-tender,capillary refill <3 sec bilateral upper and lower extremities, Neuro: Alert and oriented x 4, no focal deficits, normal speech Vitals Vitals: Vital Signs Date Time Temp Pulse Resp B/P (MAP) Pulse Ox O2 Delivery O2 Flow Rate FiO2 07/06/19 19:44 98.4 90 16 153/78 (103) 93 Room Air 98.4 Labs Labs Laboratory Tests Test 07/06/19 02:03 07/06/19 02:04 07/06/19 02:37 07/06/19 02:40 Glucose (Fingerstick) 65 mg/dL (70-99) 124 mg/dL (70-99) White Blood Count 15.8 x10^3/uL (4.0-11.0) Red Blood Count 4.79 x10^6/uL (4.30-5.70) Hemoglobin 14.6 g/dL (13.0-17.5) Hematocrit 43.4 % (39.0-53.0) Mean Corpuscular Volume 91 fL (79-100) Mean Corpuscular Hemoglobin 30 pg (25-35) Mean Corpuscular Hemoglobin Concent 34 g/dL (31-37) Red Cell Distribution Width 13.4 % (11.5-14.5) Platelet Count 241 x10^3/uL (140-400) Neutrophils (%) (Auto) 87 % (31-73) Lymphocytes (%) (Auto) 5 % (24-48) Monocytes (%) (Auto) 7 % (0-9) Eosinophils (%) (Auto) 0 % (0-3) Basophils (%) (Auto) 1 % (0-3) Neutrophils # (Auto) 13.8 x10^3/uL (1.8-7.7) Lymphocytes # (Auto) 0.8 x10^3/uL (1.0-4.8) Monocytes # (Auto) 1.1 x10^3/uL (0.0-1.1) Eosinophils # (Auto) 0.1 x10^3/uL (0.0-0.7) Basophils # (Auto) 0.1 x10^3/uL (0.0-0.2) Segmented Neutrophils % 83 % (35-66) Band Neutrophils % 2 % (0-9) Lymphocytes % 4 % (24-48) Monocytes % 10 % (0-10) Eosinophils % 1 % (0-5) Platelet Estimate Adequate (ADEQUATE) Sodium Level 141 mmol/L (136-145) Potassium Level 4.3 mmol/L (3.5-5.1) Chloride Level 105 mmol/L (98-107) Carbon Dioxide Level 30 mmol/L (21-32) Anion Gap 6 (6-14) Blood Urea Nitrogen 22 mg/dL (8-26) Creatinine 1.6 mg/dL (0.7-1.3) Estimated GFR (Cockcroft-Gault) 44.2 BUN/Creatinine Ratio 14 (6-20) Glucose Level 74 mg/dL (70-99) Lactic Acid Level 2.3 mmol/L (0.4-2.0) Calcium Level 10.1 mg/dL (8.5-10.1) Total Bilirubin 0.4 mg/dL (0.2-1.0) Aspartate Amino Transf (AST/SGOT) 27 U/L (15-37) Alanine Aminotransferase (ALT/SGPT) 34 U/L (16-63) Alkaline Phosphatase 95 U/L (46-116) Troponin I Quantitative < 0.017 ng/mL (0.000-0.055) Total Protein 7.5 g/dL (6.4-8.2) Albumin 3.9 g/dL (3.4-5.0) Albumin/Globulin Ratio 1.1 (1.0-1.7) Lipase 56 U/L (73-393) Acetone Level Neg (NEG) Triglycerides Level 151 mg/dL (0-150) Cholesterol Level 230 mg/dL (0-200) LDL Cholesterol, Calculated 168 mg/dL (0-100) VLDL Cholesterol, Calculated 30 mg/dL (0-40) Non-HDL Cholesterol Calculated 198 mg/dL (0-129) HDL Cholesterol 32 mg/dL (40-60) Cholesterol/HDL Ratio 7.2 Thyroid Stimulating Hormone (TSH) 2.708 uIU/mL (0.358-3.74) Test 07/06/19 06:36 07/06/19 07:44 07/06/19 11:33 07/06/19 15:45 Lactic Acid Level 1.7 mmol/L (0.4-2.0) Glucose (Fingerstick) 80 mg/dL (70-99) 223 mg/dL (70-99) Urine Opiates Screen Neg (NEG) Urine Methadone Screen Neg (NEG) Urine Barbiturates Neg (NEG) Urine Phencyclidine Screen Neg (NEG) Urine Amphetamine/Methamphetamine Neg (NEG) Urine Benzodiazepines Screen Neg (NEG) Urine Cocaine Screen Neg (NEG) Urine Cannabinoids Screen Neg (NEG) Urine Ethyl Alcohol Neg (NEG) Test 07/06/19 17:03 Glucose (Fingerstick) 331 mg/dL (70-99) Laboratory Tests Test 07/06/19 02:03 07/06/19 02:04 07/06/19 02:37 07/06/19 02:40 Glucose (Fingerstick) 65 mg/dL (70-99) 124 mg/dL (70-99) White Blood Count 15.8 x10^3/uL (4.0-11.0) Red Blood Count 4.79 x10^6/uL (4.30-5.70) Hemoglobin 14.6 g/dL (13.0-17.5) Hematocrit 43.4 % (39.0-53.0) Mean Corpuscular Volume 91 fL (79-100) Mean Corpuscular Hemoglobin 30 pg (25-35) Mean Corpuscular Hemoglobin Concent 34 g/dL (31-37) Red Cell Distribution Width 13.4 % (11.5-14.5) Platelet Count 241 x10^3/uL (140-400) Neutrophils (%) (Auto) 87 % (31-73) Lymphocytes (%) (Auto) 5 % (24-48) Monocytes (%) (Auto) 7 % (0-9) Eosinophils (%) (Auto) 0 % (0-3) Basophils (%) (Auto) 1 % (0-3) Neutrophils # (Auto) 13.8 x10^3/uL (1.8-7.7) Lymphocytes # (Auto) 0.8 x10^3/uL (1.0-4.8) Monocytes # (Auto) 1.1 x10^3/uL (0.0-1.1) Eosinophils # (Auto) 0.1 x10^3/uL (0.0-0.7) Basophils # (Auto) 0.1 x10^3/uL (0.0-0.2) Segmented Neutrophils % 83 % (35-66) Band Neutrophils % 2 % (0-9) Lymphocytes % 4 % (24-48) Monocytes % 10 % (0-10) Eosinophils % 1 % (0-5) Platelet Estimate Adequate (ADEQUATE) Sodium Level 141 mmol/L (136-145) Potassium Level 4.3 mmol/L (3.5-5.1) Chloride Level 105 mmol/L (98-107) Carbon Dioxide Level 30 mmol/L (21-32) Anion Gap 6 (6-14) Blood Urea Nitrogen 22 mg/dL (8-26) Creatinine 1.6 mg/dL (0.7-1.3) Estimated GFR (Cockcroft-Gault) 44.2 BUN/Creatinine Ratio 14 (6-20) Glucose Level 74 mg/dL (70-99) Lactic Acid Level 2.3 mmol/L (0.4-2.0) Calcium Level 10.1 mg/dL (8.5-10.1) Total Bilirubin 0.4 mg/dL (0.2-1.0) Aspartate Amino Transf (AST/SGOT) 27 U/L (15-37) Alanine Aminotransferase (ALT/SGPT) 34 U/L (16-63) Alkaline Phosphatase 95 U/L (46-116) Troponin I Quantitative < 0.017 ng/mL (0.000-0.055) Total Protein 7.5 g/dL (6.4-8.2) Albumin 3.9 g/dL (3.4-5.0) Albumin/Globulin Ratio 1.1 (1.0-1.7) Lipase 56 U/L (73-393) Acetone Level Neg (NEG) Triglycerides Level 151 mg/dL (0-150) Cholesterol Level 230 mg/dL (0-200) LDL Cholesterol, Calculated 168 mg/dL (0-100) VLDL Cholesterol, Calculated 30 mg/dL (0-40) Non-HDL Cholesterol Calculated 198 mg/dL (0-129) HDL Cholesterol 32 mg/dL (40-60) Cholesterol/HDL Ratio 7.2 Thyroid Stimulating Hormone (TSH) 2.708 uIU/mL (0.358-3.74) Test 07/06/19 06:36 07/06/19 07:44 07/06/19 11:33 07/06/19 15:45 Lactic Acid Level 1.7 mmol/L (0.4-2.0) Glucose (Fingerstick) 80 mg/dL (70-99) 223 mg/dL (70-99) Urine Opiates Screen Neg (NEG) Urine Methadone Screen Neg (NEG) Urine Barbiturates Neg (NEG) Urine Phencyclidine Screen Neg (NEG) Urine Amphetamine/Methamphetamine Neg (NEG) Urine Benzodiazepines Screen Neg (NEG) Urine Cocaine Screen Neg (NEG) Urine Cannabinoids Screen Neg (NEG) Urine Ethyl Alcohol Neg (NEG) Test 07/06/19 17:03 Glucose (Fingerstick) 331 mg/dL (70-99) MAINE COHEN MD Jul 06, 2019 21:25
[2019-07-07] MEDS ORDERED: PANTOPRAZOLE 40 MG TABLET.DR. PO SCH (07:30)
== END 2019-07-06 20:20 | disposition home or self-care (01) | DRG 392 ==
LOC: ER 01:02 → 6 SOUTH 02:20
PROVIDERS: ADMIT Internal Medicine; ATTEND Internal Medicine
DX: K52.9 Noninfective gastroenteritis and colitis, unspecified (principal); E11.649 Type 2 diabetes mellitus with hypoglycemia without coma; E11.65 Type 2 diabetes mellitus with hyperglycemia; Z82.49 Family history of ischemic heart disease and other diseases of the circulatory system; E66.9 Obesity, unspecified; E78.5 Hyperlipidemia, unspecified; E86.0 Dehydration; I10 Essential (primary) hypertension; I25.10 Atherosclerotic heart disease of native coronary artery without angina pectoris; I25.2 Old myocardial infarction; Z79.4 Long term (current) use of insulin; K21.9 Gastro-esophageal reflux disease without esophagitis; M19.90 Unspecified osteoarthritis, unspecified site; Z68.31 Body mass index [BMI] 31.0-31.9, adult
CPT/HCPCS: 36415; 70450; 80053; 80061; 80307; 82010; 82962; 83605; 83690; 84443; 84484; 85007; 85025; 93005; 96374; 96375; J1630; J1815; J2405; J3490; J7042; 99285-25; G0378

== ENCOUNTER → 2019-07-16 | Outpatient (CLI) | payer OTHER ==
[2019-07-06 19:44] VITALS: BP 153/78
--- NOTE | 2019-07-20 12:18 | EEG ---
DATE OF SERVICE: 07/16/2019 EEG NUMBER: [id number]. OBJECTIVE: This is a 59-year-old male patient with history of syncopal spell. EEG was requested to help rule out seizure. METHODS: Twenty electrodes were applied according to the international 10-20 electrode placement system. EKG monitoring, hyperventilation, intermittent photic stimulation, monopolar and bipolar montages are routinely utilized. The record was obtained on a digital system with video monitoring. FINDINGS: 1. Background: The patient was recorded in the awake, drowsy, and sleep states. The overall background amplitude is 10-20 microvolts. A posterior dominant rhythm of 8-9 Hz is observed. 2. Abnormalities: No specific epileptiform discharge or electrographic seizure is seen. No focal or diffuse slowing. 3. Activation: Hyperventilation was performed with good efforts and normal response. Intermittent photic stimulation was performed with photic driving. No specific epileptiform discharge or electrographic seizure induced by hyperventilation or intermittent photic stimulation. IMPRESSION: This EEG is a normal study for the awake, drowsy, and brief sleep states. No focal, lateralizing, specific epileptiform discharge or electrographic seizure is seen; however, a normal EEG does not rule out seizure. MAINE COHEN MD DR: LILLIANA/radha JOB#: [id number] / [id number] [facility]
== END | disposition home or self-care (01) ==
LOC: RT 10:29
PROVIDERS: ATTEND Psychiatry & Neurology Neurology
DX: R55 Syncope and collapse (principal); I10 Essential (primary) hypertension; E78.5 Hyperlipidemia, unspecified; I25.2 Old myocardial infarction; K21.9 Gastro-esophageal reflux disease without esophagitis; E11.9 Type 2 diabetes mellitus without complications; Z79.4 Long term (current) use of insulin; Z87.891 Personal history of nicotine dependence
CPT/HCPCS: 95816

== ENCOUNTER → 2019-10-19 | Outpatient (CLI) | payer OTHER ==
[2019-10-19 10:06] LABS: CHOLESTEROL/HDL RATIO 3.3
--- NOTE | 2019-10-19 15:23 | CARD ---
MR#: [id number] Date of Study: 10/19/2019 Ordering Physician: GERARD DOMÍNGUEZ, Referring Physician: GERARD DOMÍNGUEZ, Tech: Shelly Catherine [facility] APPROVED REPORT EXAM: Two-dimensional and M-mode echocardiogram with Doppler and color Doppler. Other Information Quality : Good INDICATION Cardiac Disease: CAD 2004 Cardiac Catheterization/Stent 2D DIMENSIONS RVDd2.6 (2.9-3.5cm)Left Atrium(2D)3.6 (1.6-4.0cm) IVSd1.0 (0.7-1.1cm)Aortic Root(2D)2.9 (2.0-3.7cm) LVDd4.8 (3.9-5.9cm)LVOT Diameter2.1 (1.8-2.4cm) PWd1.0 (0.7-1.1cm)LVDs3.2 (2.5-4.0cm) FS (%) 33.2 %SV67.3 ml LVEF(%)60.0 (>50%) Aortic Valve AoV Peak Akin.110.4cm/sAoV VTI22.3cm AO Peak GR.4.9mmHgLVOT Peak Akin.98.2cm/s AO Mean GR.2mmHgAVA (VMAX)3.05cm2 BASSAM (VTI)3.00cm2 Mitral Valve MV E Rhhblyzg67.5cm/sMV DECEL [id number] MV A Hqxrkfbk86.1cm/sE/A Ratio1.1 Pulmonary Vein S1 Zrjczzhg85.9cm/sD2 Yvjgizhg05.6cm/s LEFT VENTRICLE The left ventricle is normal size. There is normal left ventricular wall thickness. The left ventricu lar systolic function is normal and the ejection fraction is within normal range. The Ejection Fracti on is 50-55%. There is severe hypokinesis in the mid anteroseptal and mid septal bob and apex. Shannon smitral Doppler flow pattern is Grade I-abnormal relaxation pattern. RIGHT VENTRICLE The right ventricle is normal size. The right ventricular systolic function is normal. ATRIA The left atrium size is normal. The right atrium size is normal. The interatrial septum is intact wit h no evidence for an atrial septal defect or patent foramen ovale as noted on 2-D or Doppler imaging. AORTIC VALVE The aortic valve is mildly thickened but opens well. Doppler and Color Flow revealed no significant a ortic regurgitation. There is no significant aortic valvular stenosis. MITRAL VALVE The mitral valve is calcified but opens well. There is no evidence of mitral valve prolapse. There is no mitral valve stenosis. Doppler and Color-flow revealed trace mitral regurgitation. TRICUSPID VALVE The tricuspid valve is normal in structure and function. Doppler and Color Flow revealed no tricuspid valve regurgitation noted. There is no tricuspid valve stenosis. PULMONIC VALVE Doppler and Color Flow revealed trace pulmonic valvular regurgitation. There is no pulmonic valvular stenosis. GREAT VESSELS The aortic root is normal in size. The ascending aorta is normal in size. The IVC is normal in size a nd collapses >50% with inspiration. PERICARDIAL EFFUSION There is no evidence of significant pericardial effusion. Critical Notification Critical Value: No <Conclusion> The left ventricular systolic function is normal and the ejection fraction is within normal range. Th e Ejection Fraction is 50-55%. There is severe hypokinesis in the mid anteroseptal and mid septal bob and apex. Signed by : Gerard Domínguez, Electronically Approved : 10/19/2019 15:23:29
== END | disposition home or self-care (01) ==
LOC: ECHO 08:24
PROVIDERS: ATTEND Internal Medicine Cardiovascular Disease
DX: I08.0 Rheumatic disorders of both mitral and aortic valves (principal); I25.10 Atherosclerotic heart disease of native coronary artery without angina pectoris
CPT/HCPCS: 36415; 80061; 83721; 93306

== ENCOUNTER → 2019-11-09 | Outpatient (CLI) | payer OTHER ==
[2019-11-10 00:07] LABS: HEMOGLOBIN A1C 8.4 % (4.8-5.6)
== END | disposition home or self-care (01) ==
LOC: LAB 10:36
PROVIDERS: ATTEND Internal Medicine
DX: I10 Essential (primary) hypertension (principal)
CPT/HCPCS: 36415; 82043; 83036; 84443

== ENCOUNTER 2020-02-09 12:58 | Emergency (ER) | payer OTHER ==
[~2020-02-09] VITALS: Ht 167.6 cm; Wt 90.0 kg
[2020-02-09 14:05] VITALS: BP 156/98
--- NOTE | 2020-02-09 14:18 | PHYS DOC ---
Past Medical History Past Medical History: Diabetes-Type II, Hypertension, [place] Past Surgical History: Angioplasty Additional Past Surgical Histo: STENTS Smoking Status: Former Smoker Alcohol Use: Occasionally Drug Use: None General Adult EDM: Chief Complaint: LACERATION/AVULSION HPI: HPI: Patient is a 60 year old male who presents with laceration to tip of right index finger that occurred today after he was folding a [employer] [employer] knife and cut himself. Patient is denying any pain. Patient does take Plavix. Patient is unsure when his last tetanus shot was. Review of Systems: Review of Systems: Integument: See HPI Psychiatric: Denies depression or anxiety. [] Heart Score: Risk Factors: Risk Factors: DM, Current or recent (<one month) smoker, HTN, HLP, family history of CAD, obesity. Risk Scores: Score 0 - 3: 2.5% MACE over next 6 weeks - Discharge Home Score 4 - 6: 20.3% MACE over next 6 weeks - Admit for Clinical Observation Score 7 - 10: 72.7% MACE over next 6 weeks - Early Invasive Strategies Allergies: Allergies: Allergies Coded Allergies Type Severity Reaction Last Updated Verified No Known Drug Allergies 05/15/18 No Physical Exam: PE: Constitutional: Well developed, well nourished, no acute distress, non-toxic appearance. [] HENT: Normocephalic, atraumatic, bilateral external ears normal, nose normal. [] Eyes: PERRLA, EOMI, conjunctiva normal, no discharge. [] Neck: Normal range of motion, no stridor. [] Cardiovascular:Heart rate regular rhythm Lungs & Thorax: Respirations even and unlabored, no retractions, no respiratory distress Abdomen: soft, no tenderness Skin: Warm, dry, no erythema, no rash; patient has 1 centimeter laceration to the tip of his right index finger with no active bleeding [] Extremities: No cyanosis, ROM intact, no edema. [] Neurologic: Alert and oriented X 3, no focal deficits noted. [] Psychologic: Affect normal, judgement normal, mood normal. [] Current Patient Data: Vital Signs: Vital Signs Date Time Temp Pulse Resp B/P (MAP) Pulse Ox O2 Delivery O2 Flow Rate FiO2 20 14:05 97.5 55 16 156/98 (117) 100 Room Air 97.5 EKG: EKG: [] Radiology/Procedures: Radiology/Procedures: Laceration Repair by me: Anesthesia: 1% lidocaine locally Location: right index finger Tendon/Joint/Nerves: No injury Foreign body: None detected after copious irrigation and exploration with NS and chlorhexadine scrub Technique: 4 Simple Interrupted Sutures with $-0 Ethilon Complexity: No subcutaneous sutures/mucosal repair/edge excision Post Closure Length: 1.5 cm Patient's bleeding was easily controlled in the department and there is no indication of anemia. No evidence of compartment syndrome, neurologic injury, vascular injury, open joint, tendon laceration, or foreign body. Patient is appropriate for outpatient follow up. [] Course & Med Decision Making: Course & Med Decision Making Pertinent Labs and Imaging studies reviewed. (See chart for details) [] Dragon Disclaimer: Dragon Disclaimer: This electronic medical record was generated, in whole or in part, using a voice recognition dictation system. Departure Departure Impression: Primary Impression: Laceration of right index finger w/o foreign body with damage to nail Qualified Codes: S61.310A - Laceration without foreign body of right index finger with damage to nail, initial encounter Additional Impression: Need for Tdap vaccination Disposition: HOME, SELF-CARE Condition: STABLE Referrals: FLORESITA AHMADI APRN (PCP) Patient Instructions: Laceration Care, Adult, [id number], VIS, Tetanus, Diphtheria (Td); Tetanus, Diphtheria, Pertussis (Tdap) - CDC Additional Instructions: Fill the prescription and take as directed. Keep the area clean and dry. You may take Tylenol or ibuprofen as needed for pain. Keep the dressing that was placed today on for 24 hours then change the dressing twice a day and apply a ntibiotic ointment to the area. Follow-up with your primary care doctor, or return to the emergency room in 10-14 days to have the sutures removed, sooner if you develop signs of infection including: redness, warmth, drainage, or a fever. Scripts Cephalexin (KEFLEX) 500 Mg Capsule 1 CAP PO TID for 7 Days, #21 CAP 0 Refills Prov: DELON DAS APRN 02/09/20 Justicifation of Admission Dx: Justifications for Admission: Justification of Admission Dx: N/A DELON DAS APRN Feb 09, 2020 14:18
[2020-02-09] MEDS ORDERED: DIPH,PERTUSS(ACELL),TET VAC/PF 0.5 ML SYRINGE. VAX IM ONE (14:30)
[2020-02-09] MEDS ORDERED: LIDOCAINE 1% PF 2 ML VIAL. ONE (15:15)
[2020-02-09] MEDS ORDERED: LIDOCAINE 1% PF 2 ML VIAL. INJ ONE (15:30)
[2020-02-09] MEDS ORDERED: CEPH-264 PO (15:37)
== END 2020-02-09 15:42 | disposition home or self-care (01) ==
LOC: ER 12:58
DX: S61.310A Laceration without foreign body of right index finger with damage to nail, initial encounter (principal); E11.9 Type 2 diabetes mellitus without complications; I10 Essential (primary) hypertension; I25.2 Old myocardial infarction; Z90.89 Acquired absence of other organs; Z98.890 Other specified postprocedural states; Z87.891 Personal history of nicotine dependence; W26.0XXA Contact with knife, initial encounter; Y93.89 Activity, other specified; Y92.89 Other specified places as the place of occurrence of the external cause; Y99.8 Other external cause status
CPT/HCPCS: 12001; 90471; 90715; 99283; J3490

== ENCOUNTER → 2020-03-16 | Outpatient (CLI) | payer OTHER ==
[~2020-03-16] MED LIST changes: +CEPH-264 PO
== END | disposition home or self-care (01) ==
LOC: LAB 11:13
PROVIDERS: ATTEND Internal Medicine Pulmonary Disease
DX: U07.1 COVID-19 (principal); R05 Cough; R50.9 Fever, unspecified; R19.7 Diarrhea, unspecified; R53.81 Other malaise
CPT/HCPCS: U0003-CS

== ENCOUNTER → 2020-05-31 | Outpatient (CLI) | payer OTHER ==
[2020-05-31 13:43] LABS: HEMOGLOBIN 14.5 g/dL (13.0-17.5); RED BLOOD COUNT 4.71 x10^6/uL (4.30-5.70); RED CELL DISTRIBUTION WIDTH 13.5 % (11.5-14.5); WHITE BLOOD COUNT 6.7 x10^3/uL (4.0-11.0)
[2020-05-31 14:23] LABS: ALBUMIN 3.8 g/dL (3.4-5.0); ALBUMIN/GLOBULIN RATIO 1.2 (1.0-1.7); CALCIUM 9.5 mg/dL (8.5-10.1); CREATININE 1.2 mg/dL (0.7-1.3); GFR 61.3; POTASSIUM 4.4 mmol/L (3.5-5.1); TOTAL BILIRUBIN 0.5 mg/dL (0.2-1.0)
[2020-05-31 14:25] LABS: FREE T4 1.12 ng/dL (0.76-1.46); THYROID STIM HORMONE (TSH) 1.073 uIU/mL (0.358-3.74)
[2020-05-31 14:28] LABS: CHOLESTEROL/HDL RATIO 3.8
--- NOTE | 2020-05-31 16:43 | RAD ---
EXAM: Left hand, 3 views. HISTORY: Pain. COMPARISON: None. FINDINGS: 3 views of the left hand are obtained. There is no fracture, dislocation or subluxation. There is calcified atherosclerotic plaque within the distal forearm and wrist and hand vessels. No radiodense foreign body is seen. IMPRESSION: No acute osseous finding. Electronically signed by: Asha Alonso MD (05/31/2020 4:40 PM) [id number]
[2020-06-01 02:08] LABS: HEMOGLOBIN A1C 9.1 % (4.8-5.6)
== END ==
LOC: LAB 13:11
PROVIDERS: ATTEND Nurse Practitioner Family
DX: Z12.5 Encounter for screening for malignant neoplasm of prostate (principal); E10.9 Type 1 diabetes mellitus without complications; M79.642 Pain in left hand; G62.9 Polyneuropathy, unspecified; N40.0 Benign prostatic hyperplasia without lower urinary tract symptoms; I10 Essential (primary) hypertension; E78.5 Hyperlipidemia, unspecified; I70.298 Other atherosclerosis of native arteries of extremities, other extremity
CPT/HCPCS: 36415; 73130; 80053; 80061; 82306; 82607; 82746; 83036; 84439; 84443; 85027; G0103

== ENCOUNTER → 2020-06-16 | Outpatient (CLI) | payer OTHER ==
[2020-06-16 11:56] LABS: ALBUMIN 3.5 g/dL (3.4-5.0); ALBUMIN/GLOBULIN RATIO 1.1 (1.0-1.7); CALCIUM 9.9 mg/dL (8.5-10.1); GFR 75.7; POTASSIUM 5.1 mmol/L (3.5-5.1); TOTAL BILIRUBIN 0.3 mg/dL (0.2-1.0); TOTAL PROTEIN 6.7 g/dL (6.4-8.2)
[2020-06-16 11:57] LABS: CHOLESTEROL/HDL RATIO 3.5
[2020-06-17 00:10] LABS: HEMOGLOBIN A1C 8.9 % (4.8-5.6)
== END ==
LOC: LAB 11:02
PROVIDERS: ATTEND Internal Medicine
DX: E78.2 Mixed hyperlipidemia (principal)
CPT/HCPCS: 36415; 80053; 80061; 83036

== ENCOUNTER 2020-07-18 19:53 | Inpatient (IN) | payer OTHER ==
[~2020-07-18] VITALS: Ht 167.6 cm; Wt 83.1 kg
[2020-07-18 20:14] LABS: BASO # 0.1 x10^3/uL (0.0-0.2); BASO % 1 % (0-3); EOS # 0.4 x10^3/uL (0.0-0.7); EOS % 5 % (0-3); HEMATOCRIT 43.7 % (39.0-53.0); HEMOGLOBIN 15.1 g/dL (13.0-17.5); LYMPH # 2.7 x10^3/uL (1.0-4.8); LYMPH % 34 % (24-48); MEAN CORPUSCULAR HEMOGLOBIN 31 pg (25-35); MEAN CORPUSCULAR HGB CONC 35 g/dL (31-37); MEAN CORPUSCULAR VOLUME 89 fL (79-100); MONO # 0.8 x10^3/uL (0.0-1.1); MONO % 10 % (0-9); NEUT # 4.1 x10^3/uL (1.8-7.7); NEUT % 51 % (31-73); PLATELET COUNT 228 x10^3/uL (140-400); RED BLOOD COUNT 4.89 x10^6/uL (4.30-5.70); RED CELL DISTRIBUTION WIDTH 13.2 % (11.5-14.5); WHITE BLOOD COUNT 8.1 x10^3/uL (4.0-11.0)
[2020-07-18] MEDS ORDERED: ASPIRIN CHEWABLE 81 MG TABLET. PO ONE (20:15)
--- NOTE | 2020-07-18 20:21 | PHYS DOC ---
Past Medical History Past Medical History: Diabetes-Type II, Hypertension, [place] Past Surgical History: Angioplasty Additional Past Surgical Histo: STENTS Smoking Status: Former Smoker Alcohol Use: Occasionally Drug Use: None General Adult EDM: Chief Complaint: CHEST PAIN HPI: HPI: Patient is a 60 year old male who presented to ER for evaluation of left-sided chest pain that radiated to his back started a few hours ago. Patient denies any nausea vomiting, no cough, no fever, no trouble breathing. 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 Patient did not feel that he had a heart attack because of his history he came here for evaluation. Patient took a baby aspirin at home today. Review of Systems: Review of Systems: Constitutional: Denies fever or chills. [] Eyes: Denies change in visual acuity. [] HENT: Denies nasal congestion or sore throat. [] Respiratory: Denies cough or shortness of breath. [] Cardiovascular: Positive for chest pain, no edema GI: Denies abdominal pain, nausea, vomiting, bloody stools or diarrhea. [] : Denies dysuria. [] Musculoskeletal: Denies back pain or joint pain. [] Integument: Denies rash. [] Neurologic: Denies headache, focal weakness or sensory changes. [] Endocrine: Denies polyuria or polydipsia. [] Lymphatic: Denies swollen glands. [] Psychiatric: Denies depression or anxiety. [] Heart Score: HEART Score for Chest Pain: HEART Score for Chest Pain Response (Comments) Value History Moderately Suspicious 1 ECG Nonspecific Repolarizatio 1 Age >45 - < 65 1 Risk Factors >3 Risk Factors or Hx CAD 2 Troponin < Normal Limit 0 Total 5 Risk Factors: Risk Factors: DM, Current or recent (<one month) smoker, HTN, HLP, family history of CAD, obesity. Risk Scores: Score 0 - 3: 2.5% MACE over next 6 weeks - Discharge Home Score 4 - 6: 20.3% MACE over next 6 weeks - Admit for Clinical Observation Score 7 - 10: 72.7% MACE over next 6 weeks - Early Invasive Strategies Current Medications: Current Medications Medications (Trade) Dose Ordered Sig/Juanpablo Start Time Stop Time Status Last Admin Dose Admin Aspirin (Aspirin Chewable) 243 mg 1X ONCE 07/18/20 20:15 07/18/20 20:16 DC Allergies: Allergies: Allergies Coded Allergies Type Severity Reaction Last Updated Verified No Known Drug Allergies 05/15/18 No Physical Exam: PE: Constitutional: Well developed, well nourished, no acute distress, non-toxic appearance. [] HENT: Normocephalic, atraumatic, bilateral external ears normal, oropharynx moist, no oral exudates, nose normal. [] Eyes: PERRLA, EOMI, conjunctiva normal, no discharge. [] Neck: Normal range of motion, no tenderness, supple, no stridor. [] Cardiovascular:Heart rate regular rhythm, no murmur [] Lungs & Thorax: Bilateral breath sounds clear to auscultation [] Abdomen: Bowel sounds normal, soft, no tenderness, no masses, no pulsatile masses. [] Skin: Warm, dry, no erythema, no rash. [] Back: No tenderness, no CVA tenderness. [] Extremities: No tenderness, no cyanosis, no clubbing, ROM intact, no edema. [] Neurologic: Alert and oriented X 3, normal motor function, normal sensory function, no focal deficits noted. [] Psychologic: Affect normal, judgement normal, mood normal. [] Current Patient Data: Labs: Laboratory Tests Test 07/18/20 20:00 White Blood Count 8.1 x10^3/uL (4.0-11.0) Red Blood Count 4.89 x10^6/uL (4.30-5.70) Hemoglobin 15.1 g/dL (13.0-17.5) Hematocrit 43.7 % (39.0-53.0) Mean Corpuscular Volume 89 fL (79-100) Mean Corpuscular Hemoglobin 31 pg (25-35) Mean Corpuscular Hemoglobin Concent 35 g/dL (31-37) Red Cell Distribution Width 13.2 % (11.5-14.5) Platelet Count 228 x10^3/uL (140-400) Neutrophils (%) (Auto) 51 % (31-73) Lymphocytes (%) (Auto) 34 % (24-48) Monocytes (%) (Auto) 10 % (0-9) H Eosinophils (%) (Auto) 5 % (0-3) H Basophils (%) (Auto) 1 % (0-3) Neutrophils # (Auto) 4.1 x10^3/uL (1.8-7.7) Lymphocytes # (Auto) 2.7 x10^3/uL (1.0-4.8) Monocytes # (Auto) 0.8 x10^3/uL (0.0-1.1) Eosinophils # (Auto) 0.4 x10^3/uL (0.0-0.7) Basophils # (Auto) 0.1 x10^3/uL (0.0-0.2) Laboratory Tests 07/18/20 20:00 EKG: EKG: EKG was done at 804, heart rate 78 bpm, sinus rhythm, no ST segment elevation. Radiology/Procedures: Radiology/Procedures: [][facility] [address] [place] [address] IMAGING REPORT Signed PATIENT: TODD BUSTAMANTE ACCOUNT: [id number] : 1960 LOCATION: ER AGE: 60 SEX: M EXAM STATUS: REG ER ORD. PHYSICIAN: JASSON EARL DO REASON: chest pain PROCEDURE: PORTABLE CHEST 1V EXAM: CHEST ONE VIEW. HISTORY: Chest pain. COMPARISON: 08/17/2015. FINDINGS: A frontal view of the chest is obtained. There are no confluent infiltrates. There is no pneumothorax or pleural effus ion. The heart is not enlarged. IMPRESSION: 1. No confluent infiltrates. Electronically signed by: Rikki Meza MD (07/18/2020 9:30 PM) [facility] DICTATED and SIGNED BY: ENID MEAZ MD DATE: 07/18/20 [id number] Course & Med Decision Making: Course & Med Decision Making Pertinent Labs and Imaging studies reviewed. (See chart for details) Patient is a 60-year-old male who presented to ER with chest pain, EKG and lab work were normal so far, because of his risk factors we will admit him to hospital for observation, Discussed with Dr. Colon who agreed to admit the patient. He was pain free at time of admission. Dragon Disclaimer: Dragon Disclaimer: This electronic medical record was generated, in whole or in part, using a voice recognition dictation system. Departure Departure Impression: Primary Impression: Chest pain Disposition: ADMITTED INPT THIS HOSP Admitting Physician: YAZAN (Dr. Colon) Condition: IMPROVED Referrals: FLORESITA AHMADI APRN (PCP) JASSON EARL DO Jul 18, 2020 20:21
[2020-07-18 20:24] LABS: CALCIUM 9.5 mg/dL (8.5-10.1); CREATININE 1.5 mg/dL (0.7-1.3); GFR 47.4; POTASSIUM 4.1 mmol/L (3.5-5.1)
[2020-07-18 20:31] LABS: ALBUMIN 3.8 g/dL (3.4-5.0); ALBUMIN/GLOBULIN RATIO 1.1 (1.0-1.7); MAGNESIUM 2.1 mg/dL (1.8-2.4); TOTAL BILIRUBIN 0.2 mg/dL (0.2-1.0); TOTAL PROTEIN 7.4 g/dL (6.4-8.2)
--- NOTE | 2020-07-18 21:33 | RAD ---
EXAM: CHEST ONE VIEW. HISTORY: Chest pain. COMPARISON: 08/17/2015. FINDINGS: A frontal view of the chest is obtained. There are no confluent infiltrates. There is no pneumothorax or pleural effusion. The heart is not en larged. IMPRESSION: 1. No confluent infiltrates. Electronically signed by: Rikki Meza MD (07/18/2020 9:30 PM) [facility]
[2020-07-18] MEDS ORDERED: ONDANSETRON PF 4 MG/2 ML VIAL. IV PRN (21:45)
[2020-07-18] MEDS ORDERED: MORPHINE SULFATE 4 MG/ML VIAL. IV ONE (22:15)
[2020-07-18 23:40] VITALS: BP 119/58
[2020-07-19 03:00] VITALS: BP 100/50
[2020-07-19 07:00] VITALS: BP 117/61
[2020-07-19] MEDS ORDERED: AMLO5TAB4 PO (08:05)
[2020-07-19] MEDS ORDERED: ASPI-630 PO (08:05)
[2020-07-19] MEDS ORDERED: ISOS30TA4 PO (08:05)
[2020-07-19] MEDS ORDERED: MULT-245 PO (08:05)
[2020-07-19] MEDS ORDERED: ATOR40TA PO (08:05)
[2020-07-19] MEDS ORDERED: LOSA100T14 PO (08:05)
[2020-07-19] MEDS ORDERED: METO50TA4 PO (08:05)
--- NOTE | 2020-07-19 08:06 | EKG ---
[facility] [address] [place] [address] Test Date: 2020-07-18 Test Time: 22:08:56 Pat Name: TODD BUSTAMANTE Department: Room: Gender: M [employer]ist: : 1960 Requested By: JASSON EARL Order Number: [id number] Reading MD: Measurements Intervals [place] Rate: 69 P: 50 MI: 170 QRS: 61 QRSD: 70 T: 81 QT: 370 QTc: 402 Interpretive Statements SINUS RHYTHM QRS(T) CONTOUR ABNORMALITY CONSISTENT WITH ANTEROSEPTAL INFARCT AGE UNDETERMINED ABNORMAL ECG RI6.02 Compared to ECG 07/18/2020 20:03:05 No significant changes
--- NOTE | 2020-07-19 08:10 | PDOC1 ---
History and Physical Date of Service: DOS: DATE: 07/19/20 TIME: 08:07 Chief Complaint: Chief Complain: Chest pain History of Present Illness: HPI: Patient is a 60-year-old male with past medical history of diabetes mellitus, hypertension, HI x3 and stents x2. Patient presents to the ED for left-sided chest pain that radiates to his back that started yesterday around 6 PM while he was playing pool. Intensity of 4 out of 10 that slowly increased overnight that prevented him from falling asleep. Patient does not remember exerting himself extremely and states that his episode is very similar to his HI that he had fevers back. Patient also states that when he had his first stent he said that within a week the stent had restenosed and required to him to go to cardiac cath again. Denies fevers, shortness of breath, abdominal pain, dysuria, palpitations, syncope. Patient did take aspirin at home. Patient did not take nitro tablets. Past Medical/Surgical History: PMH/PSH: Past Medical History: Diabetes-Type II with insulin pump, Hypertension, [place] x3 Past Surgical History: Angioplasty with STENTS x2 Allergies: Allergies: Coded Allergies: No Known Drug Allergies (Unverified , 05/15/18) Family History: Family History: Reviewed and no relevant findings Social History: Social History: Smoking Status: Former Smoker Alcohol Use: Occasionally Drug Use: None Current Medications: Current Medications Current Medications Aspirin (Aspirin Chewable) 243 mg 1X ONCE PO Last administered on 07/18/20at 20:25; Start 07/18/20 at 20:15; Stop 07/18/20 at 20:16; Status DC Ondansetron HCl (Zofran) 4 mg PRN Q8HRS PRN IV NAUSEA/VOMITING; Start 07/18/20 at 21:45; Stop 07/19/20 at 21:44 Morphine Sulfate (Morphine Sulfate) 4 mg 1X ONCE IV Last administered on 07/18/20at 22:14; Start 07/18/20 at 22:15; Stop 07/18/20 at 22:16; Status DC Active Scripts Active Reported Isosorbide Mononitrate Er (Isosorbide Mononitrate) 30 Mg Tab.er.24h 1 Tab PO DAILY Multi Vitamin Daily (Multivitamin) 1 Each Tablet 1 Each PO DAILY Losartan Potassium 100 Mg Tablet 100 Mg PO DAILY Lipitor (Atorvastatin Calcium) 40 Mg Tablet 1 Tab PO DAILY Norvasc (Amlodipine Besylate) 5 Mg Tablet 1 Tab PO DAILY Aspirin 81 Mg Tab.chew 81 Mg PO DAILY Toprol XL (Metoprolol Succinate) 50 Mg Tab.er.24h 50 Mg PO DAILY Omeprazole 40 Mg Capsule.dr 1 Cap PO DAILY Lantus Solostar (Insulin Glargine,Hum.rec.anlog) 100 Unit/1 Ml Insuln.pen 60 Unit SQ QHS Humalog (Insulin Lispro) 100 Unit/1 Ml Cartridge 100 Unit SQ Clopidogrel (Clopidogrel Bisulfate) 75 Mg Tablet 1 Tab PO DAILY Norvasc (Amlodipine Besylate) 5 Mg Tablet 1 Tab PO DAILY ROS: Review of Systems Review of System REVIEW OF SYSTEMS: GENERAL: Denies weakness SKIN: No bruising, hair changes or rashes. EYES: No blurred, double or loss of vision. NOSE AND THROAT: No history of nosebleeds, hoarseness or sore throat. HEART: No history of palpitations, chest pain or shortness of breath on exertion. LUNGS: Denies cough, hemoptysis, wheezing or shortness of breath. GASTROINTESTINAL: Denies changes in appetite, nausea, vomiting, diarrhea or constipation. GENITOURINARY: No history of frequency, urgency, hesitancy or nocturia. NEUROLOGIC: Denies history of numbness, tingling, or tremor. PSYCHIATRIC: No history of panic, anxiety or depression. ENDOCRINE: No history of heat or cold intolerance, polyuria or polydipsia. EXTREMITIES: Denies joint pain, pain on walking or stiffness. Physical Exam: Vital Signs: Vital Signs Date Time Temp Pulse Resp B/P (MAP) Pulse Ox O2 Delivery O2 Flow Rate FiO2 07/19/20 03:00 98.7 67 18 100/50 (67) 100 Room Air 98.7 07/18/20 23:59 2.0 Physcial Exam: GEN: No apparent distress. Alert and oriented HEENT: Normal cephalic, atraumatic, external auditory canals are patent EYES: Extraocular muscles are intact, pupil are equally round and reactive to light and accommodation MUSCULOSKELETAL: Well developed , well nourished, good range of motion ENDOCRINE: No thyromegaly was palpated LYMPHATICS: No cervical chain or axillary nodes were noted HEMATOPOIETIC: No bruising NECK: Supple, no JVD, no thyromegaly was noted LUNGS: Clear to auscultation in all lung benoit without rhonchi or wheezing HEART: RRR, S!, S2 present. Peripheral pulses intact, no obvious murmurs noted ABDOMEN: Soft, nontender. Positive bowel sounds, no organomegaly, normal bowel sounds EXTREMITIES: Without clubbing, cyanosis, or edema. Pedal pulses intact. Negative Homans sign NEUROLOGIC: Normal speech and tone. A&O x 3, moves all extremities, no obvious focal deficits PSYCHIATRIC: Normal affect, normal mood. Stable SKIN: No ulcerations or rashes, good skin turgor, no jaundice VASCULAR: Good capillary refill, neurovascular bundle appears to be intact Labs: Labs: Laboratory Tests Test 07/18/20 20:00 07/18/20 23:33 07/19/20 03:05 White Blood Count 8.1 x10^3/uL (4.0-11.0) Red Blood Count 4.89 x10^6/uL (4.30-5.70) Hemoglobin 15.1 g/dL (13.0-17.5) Hematocrit 43.7 % (39.0-53.0) Mean Corpuscular Volume 89 fL (79-100) Mean Corpuscular Hemoglobin 31 pg (25-35) Mean Corpuscular Hemoglobin Concent 35 g/dL (31-37) Red Cell Distribution Width 13.2 % (11.5-14.5) Platelet Count 228 x10^3/uL (140-400) Neutrophils (%) (Auto) 51 % (31-73) Lymphocytes (%) (Auto) 34 % (24-48) Monocytes (%) (Auto) 10 % (0-9) Eosinophils (%) (Auto) 5 % (0-3) Basophils (%) (Auto) 1 % (0-3) Neutrophils # (Auto) 4.1 x10^3/uL (1.8-7.7) Lymphocytes # (Auto) 2.7 x10^3/uL (1.0-4.8) Monocytes # (Auto) 0.8 x10^3/uL (0.0-1.1) Eosinophils # (Auto) 0.4 x10^3/uL (0.0-0.7) Basophils # (Auto) 0.1 x10^3/uL (0.0-0.2) Sodium Level 143 mmol/L (136-145) Potassium Level 4.1 mmol/L (3.5-5.1) Chloride Level 107 mmol/L (98-107) Carbon Dioxide Level 29 mmol/L (21-32) Anion Gap 7 (6-14) Blood Urea Nitrogen 19 mg/dL (8-26) Creatinine 1.5 mg/dL (0.7-1.3) Estimated GFR (Cockcroft-Gault) 47.4 BUN/Creatinine Ratio 13 (6-20) Glucose Level 110 mg/dL (70-99) Calcium Level 9.5 mg/dL (8.5-10.1) Magnesium Level 2.1 mg/dL (1.8-2.4) Total Bilirubin 0.2 mg/dL (0.2-1.0) Aspartate Amino Transf (AST/SGOT) 41 U/L (15-37) Alanine Aminotransferase (ALT/SGPT) 53 U/L (16-63) Alkaline Phosphatase 90 U/L (46-116) Troponin I Quantitative 0.029 ng/mL (0.000-0.055) 0.027 ng/mL (0.000-0.055) 0.027 ng/mL (0.000-0.055) NB-Eij-G-Type Natriuretic Peptide 17 pg/mL (0-124) Total Protein 7.4 g/dL (6.4-8.2) Albumin 3.8 g/dL (3.4-5.0) Albumin/Globulin Ratio 1.1 (1.0-1.7) Lipase 125 U/L (73-393) Laboratory Tests Test 07/18/20 20:00 07/18/20 23:33 07/19/20 03:05 White Blood Count 8.1 x10^3/uL (4.0-11.0) Red Blood Count 4.89 x10^6/uL (4.30-5.70) Hemoglobin 15.1 g/dL (13.0-17.5) Hematocrit 43.7 % (39.0-53.0) Mean Corpuscular Volume 89 fL (79-100) Mean Corpuscular Hemoglobin 31 pg (25-35) Mean Corpuscular Hemoglobin Concent 35 g/dL (31-37) Red Cell Distribution Width 13.2 % (11.5-14.5) Platelet Count 228 x10^3/uL (140-400) Neutrophils (%) (Auto) 51 % (31-73) Lymphocytes (%) (Auto) 34 % (24-48) Monocytes (%) (Auto) 10 % (0-9) Eosinophils (%) (Auto) 5 % (0-3) Basophils (%) (Auto) 1 % (0-3) Neutrophils # (Auto) 4.1 x10^3/uL (1.8-7.7) Lymphocytes # (Auto) 2.7 x10^3/uL (1.0-4.8) Monocytes # (Auto) 0.8 x10^3/uL (0.0-1.1) Eosinophils # (Auto) 0.4 x10^3/uL (0.0-0.7) Basophils # (Auto) 0.1 x10^3/uL (0.0-0.2) Sodium Level 143 mmol/L (136-145) Potassium Level 4.1 mmol/L (3.5-5.1) Chloride Level 107 mmol/L (98-107) Carbon Dioxide Level 29 mmol/L (21-32) Anion Gap 7 (6-14) Blood Urea Nitrogen 19 mg/dL (8-26) Creatinine 1.5 mg/dL (0.7-1.3) Estimated GFR (Cockcroft-Gault) 47.4 BUN/Creatinine Ratio 13 (6-20) Glucose Level 110 mg/dL (70-99) Calcium Level 9.5 mg/dL (8.5-10.1) Magnesium Level 2.1 mg/dL (1.8-2.4) Total Bilirubin 0.2 mg/dL (0.2-1.0) Aspartate Amino Transf (AST/SGOT) 41 U/L (15-37) Alanine Aminotransferase (ALT/SGPT) 53 U/L (16-63) Alkaline Phosphatase 90 U/L (46-116) Troponin I Quantitative 0.029 ng/mL (0.000-0.055) 0.027 ng/mL (0.000-0.055) 0.027 ng/mL (0.000-0.055) BE-Nqc-E-Type Natriuretic Peptide 17 pg/mL (0-124) Total Protein 7.4 g/dL (6.4-8.2) Albumin 3.8 g/dL (3.4-5.0) Albumin/Globulin Ratio 1.1 (1.0-1.7) Lipase 125 U/L (73-393) Images: Images CXR Impression: 1. No acute cardiopulmonary process. Assessment/Plan Assessment/Plan Chest pain concerning for unstable angina/NSTEMI URSZULA due to vasomotor nephropathy Diabetes mellitus insulin-dependent currently with insulin pump Continue aspirin, consider Plavix if intermediate risk will defer this to cardio logy Cardiology consulted for planned left heart cath tomorrow Continue nitroglycerin as needed for pain Continue beta-nelli if blood pressures allow Continue high intensity statins IV morphine as needed Maintain O2 sats between 88 to 95% Trend troponins Repeat EKG in the a.m. Continue telemetry monitoring Monitor for electrolyte abnormalities Avoid NSAIDs Lovenox for DVT prophylaxis ProtoniX GI prophylaxis cardiac and ADA diet Full code Discussed with RN and SW Disposition inpatient management as above, pending [facility] tomorrow Surrogate decision maker is the Justifications for Admission Other Justification SOURAV ABBOTT MD Jul 19, 2020 08:10
--- NOTE | 2020-07-19 09:01 | EKG ---
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
--- NOTE | 2020-07-19 10:24 | NUR ---
SS following for discharge planning. SS reviewed pt chart and discussed with pt RN. Pt is from home with spouse and is currently on room air. Cardiology consulted. SS will continue to follow for discharge planning.
[2020-07-19 11:00] VITALS: BP 127/65
--- NOTE | 2020-07-19 11:02 | PDOC2 ---
BROOKE WEBER STABLEHAND 07/19/20 1102: CARDIAC CONSULT DATE OF CONSULT Date of Consult DATE: 07/19/20 TIME: 10:25 REASON FOR CONSULT Reason for Consult: Chest pain REFERRING PHYSICIAN Referring Physician: Aron SOURCE Source: Chart review, Patient HISTORY OF PRESENT ILLNESS HISTORY OF PRESENT ILLNESS This is a pleasant 60 yo male admitted for complains of chest pain. He works as a unit assistant in ED. Last night he started having throbbing pain near her left shoulder blade that radiated to his left shoulder and to left arm. No associated SOA, n/v or palpitations but this is the same symptom he had when he had his stent placed with last one in 2004. His last stress test was 2-3 yrs ago. Reports that his GERD is controlled and denies any recent falls, injury and no previous heavy lifting. This is also not reproducible with ROM and palpation. This was alleviated with morphine last night and lingered on through this morning and currently no pain. PAST MEDICAL HISTORY Past Medical History Cardiovascular: CAD, HTN, Hyperlipidemia, syncope Pulmonary: No pertinent hx CENTRAL NERVOUS SYSTEM: vertigo GI: GERD Heme/Onc: No pertinent hx Hepatobiliary: No pertinent hx Psych: No pertinent hx Musculoskeletal: Osteoarthritis Rheumatologic: No pertinent hx Infectious disease: Covid recovered 03/2020 ENT: No pertinent hx Renal/: No pertinent hx Endocrine: Diabetes Dermatology: No pertinent hx PAST SURGICAL HISTORY Past Surgical History Arthroscopy (bilateral knee), Other (PCI) FAMILY HISTORY Family History: Coronary Artery Disease SOCIAL HISTORY Smoke: Quit ALCOHOL: none Drugs: None Lives: with Family CURRENT MEDICATIONS CURRENT MEDICATIONS Current Medications Medications (Trade) Dose Ordered Sig/Juanpablo Route PRN Reason Start Time Stop Time Status Last Admin Dose Admin Aspirin (Aspirin Chewable) 243 mg 1X ONCE PO 07/18/20 20:15 07/18/20 20:16 DC 07/18/20 20:25 Morphine Sulfate (Morphine Sulfate) 4 mg 1X ONCE IV 07/18/20 22:15 07/18/20 22:16 DC 07/18/20 22:14 ALLERGIES ALLERGIES: Coded Allergies: No Known Drug Allergies (Unverified , 05/15/18) ROS Review of System 14 point ROS evaluated with pertinent positives noted per HPI PHYSICAL EXAM General: Alert, Oriented X3, Cooperative, No acute distress HEENT: Atraumatic, Mucous membr. moist/pink Lungs: Clear to auscultation, Normal air movement Heart: Regular rate (SR), Normal S1, Normal S2, No murmurs Abdomen: Soft, No tenderness Extremities: No cyanosis, No edema Skin: No breakdown, No significant lesion Neuro: Normal speech, Sensation intact Psych/Mental Status: Mental status NL, Mood NL MUSCULOSKELETAL: Osteoarthritic changes both hands VITALS/I&O VITALS/I&O: Vital Signs Date Time Temp Pulse Resp B/P (MAP) Pulse Ox O2 Delivery O2 Flow Rate FiO2 07/19/20 07:00 97.8 65 20 117/61 (79) 100 Room Air 97.8 07/18/20 23:59 2.0 I & O 07/18/20 07/18/20 07/19/20 15:00 23:00 07:00 Output Total 0 ml Balance 0 ml LABS Lab: Laboratory Tests Test 07/18/20 20:00 07/18/20 23:33 07/19/20 03:05 White Blood Count 8.1 x10^3/uL (4.0-11.0) Red Blood Count 4.89 x10^6/uL (4.30-5.70) Hemoglobin 15.1 g/dL (13.0-17.5) Hematocrit 43.7 % (39.0-53.0) Mean Corpuscular Volume 89 fL (79-100) Mean Corpuscular Hemoglobin 31 pg (25-35) Mean Corpuscular Hemoglobin Concent 35 g/dL (31-37) Red Cell Distribution Width 13.2 % (11.5-14.5) Platelet Count 228 x10^3/uL (140-400) Neutrophils (%) (Auto) 51 % (31-73) Lymphocytes (%) (Auto) 34 % (24-48) Monocytes (%) (Auto) 10 % (0-9) H Eosinophils (%) (Auto) 5 % (0-3) H Basophils (%) (Auto) 1 % (0-3) Neutrophils # (Auto) 4.1 x10^3/uL (1.8-7.7) Lymphocytes # (Auto) 2.7 x10^3/uL (1.0-4.8) Monocytes # (Auto) 0.8 x10^3/uL (0.0-1.1) Eosinophils # (Auto) 0.4 x10^3/uL (0.0-0.7) Basophils # (Auto) 0.1 x10^3/uL (0.0-0.2) Sodium Level 143 mmol/L (136-145) Potassium Level 4.1 mmol/L (3.5-5.1) Chloride Level 107 mmol/L (98-107) Carbon Dioxide Level 29 mmol/L (21-32) Anion Gap 7 (6-14) Blood Urea Nitrogen 19 mg/dL (8-26) Creatinine 1.5 mg/dL (0.7-1.3) H Estimated GFR (Cockcroft-Gault) 47.4 BUN/Creatinine Ratio 13 (6-20) Glucose Level 110 mg/dL (70-99) H Calcium Level 9.5 mg/dL (8.5-10.1) Magnesium Level 2.1 mg/dL (1.8-2.4) Total Bilirubin 0.2 mg/dL (0.2-1.0) Aspartate Amino Transferase (AST) 41 U/L (15-37) H Alanine Aminotransferase (ALT) 53 U/L (16-63) Alkaline Phosphatase 90 U/L (46-116) Troponin I Quantitative 0.029 ng/mL (0.000-0.055) 0.027 ng/mL (0.000-0.055) 0.027 ng/mL (0.000-0.055) WS-Fjh-T-Type Natriuretic Peptide 17 pg/mL (0-124) Total Protein 7.4 g/dL (6.4-8.2) Albumin 3.8 g/dL (3.4-5.0) Albumin/Globulin Ratio 1.1 (1.0-1.7) Lipase 125 U/L (73-393) Laboratory Tests 07/18/20 20:00 Laboratory Tests 07/18/20 20:00 ECHOCARDIOGRAM ECHOCARDIOGRAM <Conclusion> The left ventricular systolic function is normal and the ejection fraction is w ithin normal range. The Ejection Fraction is 50-55%. There is severe hypokinesis in the mid anteroseptal and mid septal bob and apex. DATE: 10/19/19 1054 ASSESSMENT/PLAN ASSESSMENT/PLAN 1. Chest pain: pain same as when he had his stent placed 2. CAD: past stents 3. DM2: per PCP 4. HTN: controlled 5. HLP 6. Recovered Covid-19: 03/2020 7. suspect CKD3 Recommendations 1. trops are nml and no acute EKG changes, however his symptom is the same as when he had his stent in the past. Discussed MPI vs LHC and would like to proceed with LHC. Will schedule tomorrow, risks nad benefits discussed and agreeable to proceed. 2. IVF to start tonight 3. Limited TTE and check LV function, EF 4. Lipids 5. Continue secondary prevention measures including ASA/plavix. 6. Rapid Covid-19 swab GERARD PRATT MD 07/20/20 0348: CARDIAC CONSULT ASSESSMENT/PLAN ASSESSMENT/PLAN Late entry for 07/19/2020 Pt. seen and examined. Agree with above ALIGNER note. Typical angina with multiple risk factors. Plan for definitive evaluation. Thanks BROOKE WEBER APRN Jul 19, 2020 11:02 GERARD PRATT MD Jul 20, 2020 03:48
[2020-07-19] MEDS ORDERED: NITROGLYCERIN SUBLINGUAL 0.4 MG BOTTLE OF 25. SL PRN (11:15)
[2020-07-19] MEDS: CLOPIDOGREL BISULFATE 75 MG TABLET PO SCH (11:30)
[2020-07-19] MEDS: ISOSORBIDE MONONITRATE ER 30 MG TAB.ER.24H PO SCH (11:31)
[2020-07-19] MEDS: ASPIRIN CHEWABLE 81 MG TABLET. PO SCH (11:31)
[2020-07-19] MEDS: METOPROLOL SUCC 24HR ER 50 MG TAB.ER.24H. PO SCH (11:32)
[2020-07-19] MEDS: amLODIPine BESYLATE 5 MG TABLET PO SCH (11:32)
[2020-07-19 15:00] VITALS: BP 121/66
--- NOTE | 2020-07-19 17:34 | CARD ---
MR#: [id number] Date of Study: 07/19/2020 Ordering Physician: BROOKE WEBER, Referring Physician: BROOKE WEBER Tech: Shelly Catherine RDCS APPROVED REPORT EXAM: LIMITED Two-dimensional echocardiogram Other Information Quality : Good INDICATION LV Function:Systolic LEFT VENTRICLE Limited echocardiogram for LV systolic function. The left ventricle is normal size. There is normal l eft ventricular wall thickness. The left ventricular systolic function is normal and the ejection fra ction is within normal range. The Ejection Fraction is 50-55%. There is normal LV segmental wall patricia on. PERICARDIAL EFFUSION There is no evidence of significant pericardial effusion. Critical Notification Critical Value: No <Conclusion> Limited echocardiogram for LV systolic function. The left ventricle is normal size. The left ventricular systolic function is normal and the ejection fraction is within normal range. The Ejection Fraction is 50-55%. There is normal LV segmental wall motion. Signed by : Loki Gutierres MD Electronically Approved : 07/19/2020 17:34:21
[2020-07-19 19:36] VITALS: BP 121/59
[2020-07-19] MEDS: ATORVASTATIN CALCIUM 40 MG TABLET. PO SCH (21:40)
[2020-07-19 22:32] VITALS: BP 106/57
[2020-07-19] MEDS ORDERED: IV NORMAL SALINE 1000ML BAG 1,000 ML IV ONE (23:00)
[2020-07-20] VITALS (13 sets, daily range): BP systolic 111–149; BP diastolic 57–74
[2020-07-20] MEDS: CLOPIDOGREL BISULFATE 75 MG TABLET PO SCH (08:29)
[2020-07-20] MEDS: ASPIRIN CHEWABLE 81 MG TABLET. PO SCH (08:29)
[2020-07-20] MEDS: METOPROLOL SUCC 24HR ER 50 MG TAB.ER.24H. PO SCH (08:29)
[2020-07-20] MEDS: amLODIPine BESYLATE 5 MG TABLET PO SCH (08:30)
[2020-07-20] MEDS: ISOSORBIDE MONONITRATE ER 30 MG TAB.ER.24H PO SCH (08:30)
[2020-07-20] MEDS ORDERED: LIDOCAINE 1% PF 2 ML VIAL. ONE (09:47)
[2020-07-20] MEDS ORDERED: IODIXANOL 320 MG/ML 100 ML VIAL. ONE (09:47)
[2020-07-20] MEDS ORDERED: fentaNYL PF VIAL 100 MCG/2 ML VIAL ONE (09:57)
[2020-07-20] MEDS ORDERED: VERAPAMIL 5 MG/2 ML VIAL. ONE (09:57)
[2020-07-20] MEDS ORDERED: HEPARIN for IV BOLUS 10,000 UNIT/10 ML VIAL. ONE (09:57)
[2020-07-20] MEDS ORDERED: MIDAZOLAM HCL/PF 2 MG/2 ML VIAL. ONE (09:57)
[2020-07-20] MEDS ORDERED: NITROGLYCERIN 200 MCG/2 ML SYRINGE FOR CATH/VASC LAB. ONE (09:57)
[2020-07-20] MEDS ORDERED: HEPARIN for IV BOLUS 10,000 UNIT/10 ML VIAL. IART ONE (10:45)
[2020-07-20] MEDS ORDERED: IODIXANOL 320 MG/ML 100 ML VIAL. IART ONE (10:45)
[2020-07-20] MEDS ORDERED: VERAPAMIL 5 MG/2 ML VIAL. IART ONE (10:45)
[2020-07-20] MEDS ORDERED: NITROGLYCERIN 200 MCG/2 ML SYRINGE FOR CATH/VASC LAB. IART ONE (10:45)
[2020-07-20] MEDS ORDERED: MIDAZOLAM HCL/PF 2 MG/2 ML VIAL. IV ONE (10:45)
[2020-07-20] MEDS ORDERED: fentaNYL PF VIAL 100 MCG/2 ML VIAL IV ONE (10:45)
[2020-07-20] MEDS ORDERED: LIDOCAINE 1% PF 2 ML VIAL. INJ ONE (10:45)
--- NOTE | 2020-07-20 11:50 | NUR ---
SS following up with discharge planning. SS reviewed pt chart and discussed with pt RN. Pt is currently on room air. COVID19 negative. Pt having left heart cath today. Discharge plan is to home when medically ready. SS will continue to follow for discharge planning.
--- NOTE | 2020-07-20 12:09 | PDOC ---
[employer] PROGRESS NOTE Date of Service DOS: DATE: 07/20/20 TIME: 12:07 Chief Complaint Chief Complaint Chest pain concerning for unstable angina/NSTEMI CAD with multiple stent placementleft heart cath completed on 07/20/2020 showing occluded stents [id number] due to vasomotor nephropathy Diabetes mellitus insulin-dependent currently with insulin pump Continue aspirin, consider Plavix if intermediate risk will defer this to [facility] Cardiology consulted for planned left heart cath tomorrow Continue nitroglycerin as needed for pain Continue beta-nelli if blood pressures allow Continue high intensity statins IV morphine as needed Maintain O2 sats between 88 to 95% Trend troponins Repeat EKG in the a.m. Continue telemetry monitoring Monitor for electrolyte abnormalities Avoid NSAIDs Lovenox for DVT prophylaxis ProtoniX GI prophylaxis cardiac and ADA diet Full code Discussed with RN and SW Disposition inpatient management as above, pending discussion for CABG Surrogate decision maker is the History of Present Illness History of Present Illness 07/20/2020 No acute events overnight. Patient went down to left heart cath and was found to have multivessel stent occlusion that will require CABG. Pending planning for further management at this time with Dr. Piña. Patient's chart, labs, images were reviewed and discussed with RN 60-year-old male with past medical history of diabetes mellitus, hypertension, FL x3 and stents x2. Patient presents to the ED for left-sided chest pain that radiates to his back that started yesterday around 6 PM while he was playing pool. Intensity of 4 out of 10 that slowly increased overnight that prevented him from falling asleep. Patient does not remember exerting himself extremely and states that his episode is very similar to his FL that he had fevers back. Patient also states that when he had his first stent he said that within a week the stent had restenosed and required to him to go to cardiac cath again. Denies fevers, shortness of breath, abdominal pain, dysuria, palpitations, synco pe. Patient did take aspirin at home. Patient did not take nitro tablets. Vitals/I&O Vitals/I&O: Vital Signs Date Time Temp Pulse Resp B/P (MAP) Pulse Ox O2 Delivery O2 Flow Rate FiO2 07/20/20 11:48 97.8 70 20 112/61 (78) 99 Room Air 97.8 07/20/20 10:22 2.0 I & O 07/19/20 07/19/20 07/20/20 15:00 23:00 07:00 Intake Total 500 ml 500 ml 0 ml Balance 500 ml 500 ml 0 ml Physical Exam General: Alert, Oriented X3, Cooperative, No acute distress Heart: Regular rate (SR), Normal S1, Normal S2, No murmurs Abdomen: Soft, No tenderness Extremities: No cyanosis, No edema Skin: No breakdown, No significant lesion Labs Labs: Laboratory Tests Test 07/19/20 13:44 SARS-CoV-2 Antigen (Rapid) Negative (NEGATIVE) Assessment and Plan Assessmemt and Plan Problems Medical Problems: (1) Chest pain Status: Acute Comment Review of Relevant I have reviewed the following items gene (where applicable) has been applied. Medications: Current Medications Medications (Trade) Dose Ordered Sig/Juanpablo Route PRN Reason Start Time Stop Time Status Last Admin Dose Admin Atorvastatin Calcium (Lipitor) 40 mg QHS PO 07/19/20 21:00 07/19/20 21:40 Sodium Chloride 1,000 ml @ 75 mls/hr 1X ONCE IV 07/19/20 23:00 07/20/20 12:19 07/19/20 22:27 Nitroglycerin (Nitroglycerin) 200 mcg 1X ONCE IART 07/20/20 10:45 07/20/20 10:48 DC 07/20/20 10:44 Verapamil HCl (Verapamil) 2.5 mg 1X ONCE IART 07/20/20 10:45 07/20/20 10:48 DC 07/20/20 10:44 Heparin Sodium (Porcine) (Heparin Sodium) 2,500 unit 1X ONCE IART 07/20/20 10:45 07/20/20 10:48 DC 07/20/20 10:45 Heparin Sodium/ Sodium Chloride (HEPARIN for ARTERIAL LINE FLUSH) 1,000 unit 1X ONCE IART 07/20/20 10:45 07/20/20 10:48 DC 07/20/20 10:44 Midazolam HCl (Versed) 2 mg 1X ONCE IV 07/20/20 10:45 07/20/20 10:48 DC 07/20/20 10:22 Fentanyl Citrate (Fentanyl 2ml Vial) 50 mcg 1X ONCE IV 07/20/20 10:45 07/20/20 10:48 DC 07/20/20 10:22 Iodixanol (Visipaque 320) 38 ml 1X ONCE IART 07/20/20 10:45 07/20/20 10:48 DC 07/20/20 10:44 Lidocaine HCl (Xylocaine-Mpf 1% 2ml Vial) 2 ml 1X ONCE INJ 07/20/20 10:45 07/20/20 10:48 DC 07/20/20 10:44 Justifications for Admission Other Justification SOURAV ABBOTT MD Jul 20, 2020 12:09
--- NOTE | 2020-07-20 16:31 | CONS ---
DATE OF CONSULTATION: 07/20/2020 We were asked by Dr. Domínguez to see the patient. HISTORY OF PRESENT ILLNESS: The patient is a 60-year-old with coronary artery disease. The patient has a history of a stent placement by Dr. Be in the past. The patient states that earlier this week, he began to have atypical chest pain. The pain started in the left shoulder blade area and persisted overnight and became similar to the pain that he had with the stent placement in 2004 and came to the Emergency Department. Today, the patient had cardiac catheterization that shows a total occlusion of the left anterior descending related to the stent anatomically and right to left collaterals of the distal LAD. There is trivial right coronary artery disease and circumflex is satisfactory. Cardiac echo reveals a normal ejection fraction. We note that the patient has been taking Plavix chronically. He is also on aspirin at home. The patient has a history of diabetes mellitus type 1, according to the patient for 30 something years and has an insulin pump in place. ALLERGIES: None known. MEDICATIONS AT HOME: Aspirin, Plavix, Lipitor, metoprolol, insulin, Norvasc. 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 REVIEW OF SYSTEMS: I agree with review of systems as dictated, GENERAL: Denies fever or chills. EYES: Wears glasses. HENT: No headache, no hearing loss, no sinus problems. RESPIRATORY: Denies shortness of breath or cough. CARDIAC: As mentioned, angina with atypical component radiating to the shoulder. GASTROINTESTINAL: No nausea, vomiting, diarrhea or blood. GENITOURINARY: No urgency, frequency or blood. NEUROLOGIC: No motor or sensory dysfunction. ENDOCRINE: No goiter, no tremor. SKIN: No rash or infection. MUSCULOSKELETAL: No bone or joint complaints. PSYCHIATRIC: No depression, no anxiety. PHYSICAL EXAMINATION: GENERAL: The patient is lying in bed, seems comfortable post-catheterization. VITAL SIGNS: Heart rate 73, blood pressure 134/74, O2 sat 99% on 2 liters, temperature 97.8. HEENT: No scleral icterus. No arcus. NECK: No mass. I hear no bruit. CHEST: Clear to auscultation. HEART: Rhythm regular. No murmur. ABDOMEN: Soft. EXTREMITIES: No clubbing, cyanosis or edema, 2+ popliteal pulses bilaterally. No obvious saphenous vein problems. MUSCULOSKELETAL: No bone or joint asymmetry or deformity. NEUROLOGIC: No motor or sensory dysfunction. PSYCHIATRIC: Oriented x 3, answers questions appropriately. VASCULAR: No bruisability. No bleeding. ASSESSMENT: The patient has important left anterior descending coronary artery disease. I discussed coronary artery bypass, specifically left internal mammary to left anterior descending artery bypass. Risks and details, options and alternatives were discussed. Risks include but are not limited to bleeding, infection, anesthesia risks, heart and lung problems, stroke and . Timing of surgery is also reviewed. The patient seems to wish to return home and come back electively and from my point of view, this is reasonable. We would certainly like to keep the patient off Plavix for an interval before surgery and it is always interesting to check a P2Y12 to see if indeed the patient is a Plavix responder. I will discuss this case further with Dr. Domínguez, specifically the timing of surgery or if they choose to treat this as a chronic total occlusion. Thank you for the consult. MICAELA NOVAK MD DR: CYNTHIA/radha JOB#: [id number] / [id number]
[2020-07-20 16:58] LABS: BILIRUBIN,URINE NEGATIVE (NEG); CLARITY,URINE CLEAR; COLOR,URINE YELLOW; NITRITE,URINE NEGATIVE (NEG); PH,URINE 6.5 (<5.0-8.0); PROTEIN,URINE NEGATIVE (NEG-TRACE); UROBILINOGEN,URINE 0.2 mg/dL (0.2 mg/dL)
[2020-07-20 17:10] LABS: BACTERIA,URINE 0 /HPF (0-FEW); RBC,URINE 0 /HPF (0-2); WBC,URINE 0 /HPF (0-4)
--- NOTE | 2020-07-20 17:15 | CARD ---
MR#: [id number] Date of Study: 07/20/2020 Ordering Physician: BROOKE WEBER, Referring Physician: BROOKE WEBER, Tech: NI ZHENG RTR APPROVED REPORT Technologist: NI ZHENG RTR Nurse: Kaylin Cobb R.N. Procedure(s) performed: MODERATE SEDATION TIME: 26 MINS FLUORO TIME: 3.9 MIN DOSE: 56 GYCM2 CONTRAST: 38CC VISI HISTORY : coronary artery disease. INDICATION The indication(s) include : unstable angina . [facility] Clinical Frailty Scale [facility] Clinical Frailty Scale: Managing Well Heart Failure Heart Failure: Yes If Yes, Newly Diagnosed: No If Yes, HF Type: Diastolic If Yes, NYHA Class: Class II PROCEDURE NARRATIVE Clinical information: 60-year-old male who presents to the hospital in the setting of unstable angina with known prior cezar nary artery disease. Informed consent: Written informed consent was obtained from the patient after adequate discussion of the risks and christiano efits of the procedure. Procedure details: ACCESS: The right wrist was prepped and draped in usual sterile fashion. Under 1% lidocaine local anesthesia a 6 Iraqi Terumo sheath was placed in the right radial artery via the Seldinger technique. DIAGNOSTIC ANGIOGRAPHY: Right and left coronary arteries were engaged with a 6 Iraqi TIG catheter. Diagnostic angiography i n multiple views were obtained. Next, a 6 Iraqi pigtail catheter was placed in the left ventricle a nd a LVEDP was measured. A pullback was performed. All catheters were exchanged over J-tip guidewir e. FINDINGS: ======= Aorta: 110/80 LVEDP: 15 mmHg Coronary angiography: LM: Large caliber vessel with normal angiographic appearance LAD: Large caliber vessel with proximal 100% in-stent restenosis, distal to the stent edge the LAD se en to fill via left to left and right to left collaterals. There are likely 3 stents with possible f racture within the stent struts as well. LCX: Moderate caliber non-dominant vessel with mild luminal irregularities OM1: Moderate caliber vessel with normal angiographic appearance RCA: Large caliber dominant vessel with mid 30% stenosis. RPDA and RPL are moderate caliber vessels with mild luminal irregularities. There is a dual PDA syst em with an early branching RV marginal branch with normal angiographic appearance CLOSURE: At case completion the right radial sheath was removed and a Terumo radial band was applied with 11 m L of air. Hemostasis was achieved. COMPLICATIONS: No acute complications noted Conclusion 1. Normal left-sided filling pressures 2. One-vessel coronary artery disease with 100% occlusion of previously placed proximal LAD stents. Recommendations 1. Patient already has 2 layers of stents in his proximal LAD with possible stent fracture involving an overlap segment of a third stent. Given the patient's age, history of diabetes and multiple laye rs of stents a referral to coronary artery bypass grafting was made to discuss his case. Options inc chantal continued medical therapy as he has preserved LV function and no evidence of troponin elevation versus MIMS to LAD single-vessel bypass versus high risk PCI of the LAD stent with likely laser ather ectomy. Patient and family will discuss with the surgeon and we will proceed accordingly Signed by : Francesco Domínguez, Electronically Approved : 07/20/2020 17:14:50
--- NOTE | 2020-07-20 20:25 | RAD ---
EXAM: Carotid Doppler sonogram. HISTORY: Preoperative evaluation. Coronary artery atherosclerosis. TECHNIQUE: Wakefield scale and color Doppler sonographic evaluation of the neck with spectral waveform audrey lysis was performed and static images are submitted for review. FINDINGS: There is atherosclerotic plaque within the right carotid bulb and proximal right internal a nd external carotid arteries. The peak systolic velocity within the right common carotid artery is 97 cm/sec. The peak systolic velocity within the right internal carotid artery is 100 cm/sec and the en d diastolic velocity within the right internal carotid artery is 28 cm/sec. The right ICA/CCA ratio i s 1.17. There is atherosclerotic plaque within the left common carotid artery and proximal internal carotid a rtery. The peak systolic velocity within the left common carotid artery is 124 cm/sec. The peak systo lic velocity within the left internal carotid artery is 89 cm/sec and the end diastolic velocity with in the left internal carotid artery is 20 cm/sec. The left ICA/CCA ratio is 0.7. There is normal antegrade flow within both vertebral arteries. IMPRESSION: No Doppler evidence of hemodynamically significant stenosis. PQRS Compliance Statement - Stenosis calculations for CT, MR and conventional angiography are based u glenny measurement of the distal ICA diameter in accordance with the NASCET methodology. Stenosis calcu lations for carotid ultrasound studies are derived from validated velocity criteria which are known t o correlate with the NASCET methodology. Electronically signed by: Asha Alonso MD (07/20/2020 8:23 PM) [facility]
--- NOTE | 2020-07-20 20:28 | RAD ---
EXAM: Bilateral lower extremity venous mapping sonogram. HISTORY: Preoperative evaluation. Coronary artery disease. TECHNIQUE: Wakefield scale and color Doppler sonographic evaluation of the bilateral lower extremity veins was performed. FINDINGS: The right greater saphenous vein measures 4 mm at its origin, 6 mm within the proximal uppe r thigh, 4 mm within the mid thigh, 2 mm within the distal thigh, 3 mm at the level of the knee, 3 mm within the proximal calf, 4 mm within the mid calf and 4 mm at the ankle. The right lesser saphenous vein measures 5 mm within the proximal calf, 3 mm within the mid calf, and 3 mm within the distal ca lf. The left greater saphenous vein measures 7 mm at its origin, 7 mm within the proximal upper thigh, 4 mm within the mid thigh, 3 mm within the distal thigh, 4 mm at the level of the knee, 3 mm within the proximal calf, 4 mm within the mid calf and 4 mm at the ankle. The left lesser saphenous vein measur es 5 mm within the proximal calf, 4 mm within the mid calf, and 4 mm within the distal calf. IMPRESSION: Bilateral greater and lesser saphenous vein caliber measurements, described above. Electronically signed by: Asha Alonso MD (07/20/2020 8:26 PM) [facility]
[2020-07-20] MEDS: ATORVASTATIN CALCIUM 40 MG TABLET. PO SCH (21:37)
[2020-07-21 03:30] VITALS: BP 154/70
[2020-07-21 07:00] VITALS: BP 139/72
[2020-07-21] MEDS: CLOPIDOGREL BISULFATE 75 MG TABLET PO SCH (08:00)
[2020-07-21] MEDS: ASPIRIN CHEWABLE 81 MG TABLET. PO SCH (08:00)
[2020-07-21] MEDS: amLODIPine BESYLATE 5 MG TABLET PO SCH (08:01)
[2020-07-21] MEDS: METOPROLOL SUCC 24HR ER 50 MG TAB.ER.24H. PO SCH (08:01)
[2020-07-21] MEDS: ISOSORBIDE MONONITRATE ER 30 MG TAB.ER.24H PO SCH (08:02)
--- NOTE | 2020-07-21 09:52 | NUR ---
SS following up with discharge planning. SS reviewed pt chart and discussed with pt RN. Pt is currently on room air. COVID19 negative. Pt had heart cath on 07/20/2020. Probable discharge to home today. SS will continue to follow for discharge planning.
[2020-07-21 10:59] VITALS: BP 121/64
--- NOTE | 2020-07-21 11:19 | DISCH ---
DISCHARGE INSTRUCTIONS Condition on Discharge Condition on Discharge: Stable Activity After Discharge Activity Instructions for Disc: Activity as tolerated Lifting Instructions after Dis: Do not lift >10 pounds Driving Instructions after Dis: Do not drive today Weight Bearing Status after Di: No restrictions Diet after Discharge Diet after Discharge: Cardiac, Diabetic No Calorie Level Contacting the after DC Call your doctor for: If your condition worsens Follow-Up Follow up with: Cardiology as needed and Dr. Piña regarding her CABG Follow Up With: PCP within 2 weeks of discharge SOURAV ABBOTT MD Jul 21, 2020 11:19
--- NOTE | 2020-07-21 13:09 | PDOC ---
[facility] 07/21/20 1309: CARDIO Progress Notes Date and Time Date of Service 07/21/2020 Time of Evaluation 1140 Subjective Subjective: No Chest Pain, No shortness of breath, No Palpitations Vitals Vitals Vital Signs Date Time Temp Pulse Resp B/P (MAP) Pulse Ox O2 Delivery O2 Flow Rate FiO2 07/21/20 10:59 98.2 73 18 121/64 (83) 95 Room Air 98.2 07/20/20 10:22 2.0 Weight Weight [ ] Input and Output Intake and Output Intake and Output 07/21/20 07:00 Intake Total 1550 ml Balance 1550 ml Intake Oral 1550 ml # Voids 3 Laboratory Labs Laboratory Tests Test 07/20/20 16:48 Urine Collection Type Unknown Urine Color Yellow Urine Clarity Clear Urine pH 6.5 (<5.0-8.0) Urine Specific Hulen 1.015 (1.000-1.030) Urine Protein Negative mg/dL (NEG-TRACE) Urine Glucose (UA) 250 mg/dL (NEG) Urine Ketones (Stick) Negative mg/dL (NEG) Urine Blood Negative (NEG) Urine Nitrite Negative (NEG) Urine Bilirubin Negative (NEG) Urine Urobilinogen Dipstick 0.2 mg/dL (0.2 mg/dL) Urine Leukocyte Esterase Negative (NEG) Urine RBC 0 /HPF (0-2) Urine WBC 0 /HPF (0-4) Urine Bacteria 0 /HPF (0-FEW) Physical Exam HEENT: Neck Supple W Full Motion Chest: Symmetric LUNGS: Clear to Auscultation Heart: S1S2, RRR (SR) Abdomen: Soft N/T Extremities: No Calf Tenderness Neurology: alert, oriented, follow commands Assessment Assessment 1. Chest pain: potentially from vasopasm. LHC as noted below. EF and WM nml 2. CAD: LHC revealed large caliber vessel with proximal 100% in-stent restenosis, distal to the stent edge the LAD seen to fill via left to left and right to left collaterals. There are likely 3 stents with possible fracture within the stent struts as well. 3. DM2: per PCP 4. HTN: controlled 5. HLP 6. Recovered Covid-19: 03/2020 7. suspect CKD3 Recommendations 1. Options include continued medical therapy as he has preserved LV function and no evidence of troponin elevation versus MIMS to LAD single-vessel bypass versus high risk PCI of the LAD stent with likely laser atherectomy were discussed and at this time would like pursue medical therapy 2. Continue secondary prevention measures. ASA/plavix and already on norvasc and imdur. If CP recurs then will consider ranozaline. 3. Will add zetia to his statin with goal LDL at 55 4. Follow up in office as scheduled Justicifation of Admission Dx: Justifications for Admission: Justification of Admission Dx: N/A GERARD PRATT MD 07/22/20 1028: CARDIO Progress Notes Plan Plan Late entry for 07/21/2020 Pt. seen and examined. Agree with above [employer] note. [facility] Jul 21, 2020 13:09 GERARD PRATT MD Jul 22, 2020 10:28
[2020-07-21] MEDS ORDERED: EZETIMIBE 10 MG TABLET. PO SCH (14:00)
== END 2020-07-21 15:00 | DRG 286 ==
LOC: ER 19:53 → 2 NORTH 21:35 → OBSVTOIN 07-19 13:04
PROVIDERS: ADMIT Internal Medicine; ATTEND Internal Medicine
PROC: B211YZZ Fluoroscopy of Multiple Coronary Arteries using Other Contrast (ICD-10-PCS; principal; 2020-07-20)
PROC: 4A023N7 Measurement of Cardiac Sampling and Pressure, Left Heart, Percutaneous Approach (ICD-10-PCS; 2020-07-20)
DX: T82.855A Stenosis of coronary artery stent, initial encounter (principal); N17.0 Acute kidney failure with tubular necrosis; E10.9 Type 1 diabetes mellitus without complications; E78.5 Hyperlipidemia, unspecified; I10 Essential (primary) hypertension; I25.10 Atherosclerotic heart disease of native coronary artery without angina pectoris; K21.9 Gastro-esophageal reflux disease without esophagitis; Y83.1 Surgical operation with implant of artificial internal device as the cause of abnormal reaction of the patient, or of later complication, without mention of misadventure at the time of the procedure; M19.90 Unspecified osteoarthritis, unspecified site; I25.2 Old myocardial infarction; Z79.4 Long term (current) use of insulin; Z82.49 Family history of ischemic heart disease and other diseases of the circulatory system; Z87.891 Personal history of nicotine dependence; Z20.828 Contact with and (suspected) exposure to other viral communicable diseases
CPT/HCPCS: 36415; 71045; 80053; 80061; 81001; 83690; 83735; 83880; 84484; 85025; 87426; 87641; 93005; 93308; 93458; 93880; 93970; 99152; 99153; C1769; C1892; G0378; G0379; J1644; J2250; J2270; J3010; J3490; J7030; Q9967; U0003

== ENCOUNTER → 2020-08-29 | Outpatient (CLI) | payer OTHER ==
[~2020-08-29] MED LIST changes: +ASPI-630 PO; +ATOR40TA PO; +ISOS30TA4 PO; +LOSA100T14 PO; +METO50TA4 PO; +MULT-245 PO
--- NOTE | 2020-08-29 18:03 | RAD ---
MR#: [id number] Date of Study: 08/29/2020 Ordering Physician: GERARD PRATT, Referring Physician: KARINE SERRANO Tech: HEBER Dwyer, ARRT (R) (N) APPROVED REPORT Test Type: Exercise Stress Nurse/Tech: KESHAV MAGANA Test Indications: CAD, UPPER BACK PAIN Cardiac History: CAD, STENTS, ME, HTN- SEE EMR Medications: SEE EMR Medical History: SEE EMR Resting ECG: SR Resting Heart Rate: 75 bpm Resting Blood Pressure: 143/78mmHg Pretest Chest Pain: No chest pain Nurse/Tech Notes S1,S2, LUNGS CTA, DENIED CP OR SOA, VSS. NO COMPLAINTS. Consent: The procedure was explained to the patient in lay terms. Informed consent was witnessed. Hector eout was entered into [facility]. History and Stress Test performed by Asha Boone, RT (R) (N) Stress Symptoms PT DENIED CHEST PAIN DURING TREADMILL TESTING, HE COMPLAINED OF BEING MODERATELY SHORT OF BREATH, VSS - APPROPRIATE RESPONSE DURING EXERCISE. POST EXERCISE Reason for Termination: Reached target heart rate Target HR: 134 Max HR: 159 bpm 100% of Maximum Predicted HR: 158 bpm Exercise duration: 7:10 min:sec, 3 Stage Exercise capacity: 10.0METs Max Blood Pressure: 184/73mmHg Blood Pressure response to exercise: Normal blood pressure response during stress.Normal blood pressu re response during stress. Heart Rate response to exercise: NORMAL HEART RATE RESPONSE DURING EXERCISE Chest Pain: No. INTERPRETATION Stress EKG Conclusion: The resting EKG shows a sinus rhythm, septal Q wave and nonspecific ST segment changes. The stress EKG shows mild ST segment depression in the inferior and lateral leads. ST segment changes with stress that are suggestive but not diagnostic of ischemia. Imaging Protocol IMAGE PROTOCOL: Rest Tc-99m/stress Tc-99m 1 day Rest: Stress: Viability: Radiopharm.Tc99m [id number] Sestamibi Dose10.5mCi 31mCi Img Date 08/29/2020 08/29/2020 Inj-Img Mgti87otf. 60min. Rest Admin Site:IV - Right AntecubitalAdministrator:RT Jonn (R)(N) Stress Admin Site: IV - Right AntecubitalAdministrator: RT Jonn (R)(N) STRESS DATA End Diast. Vol.95.0mlAv. Heart Rate82.0bpm End Syst. Vol.28.0mlCO Index BSA5.5L/min Myocardial Gusn951.0gEject. Eunanezz46.0% Stress Rates Pk. Fill Rate3.11EDV/secLVtime Pk. Fill 113.21msec Pk. Empty Rate4.67ESV/secLVtime Pk. Kkabs447.23msec /3 Pk. Fill2.12EDV/sec Stress Scores Regional WT0.00Summed WT0.00 Regional WM0.00Summed WM0.00 LV Perfusion The stress scans show a moderate defect in the anterior septal region. The rest scans showed no significant defects. Nuclear imaging shows reversible ischemia in the anterior septal region. Wall Motion Left ventricular systolic function is normal with an ejection fraction of greater than 70%. LV Perf. Quant 17 Seg. SSS10.00 17 Seg. SRS7.00 17 Seg. SDS3.00 Stress Defect Extent (% LAD)38.10Rest Defect Extent (% LAD)31.30Rev. Defect Extent (% LAD)10.60 Stress Defect Extent (% LCX) 12.50Rest Defect Extent (% LCX)0.00Rev. Defect Extent (% LCX)12.50 Stress Defect Extent (% RCA)0.00Rest Defect Extent (% RCA)0.00Rev. Defect Extent (% RCA)0.00 Stress Defect Extent (% DYLAN)22.00Rest Defect Extent (% DYLAN)12.80Rev. Defect Extent (% DYLAN)10.00 Conclusion 1. Good exercise tolerance with the patient walking for 7 minutes and 10 seconds on a Kole protocol. 2. No reported chest pain with exertion. 3. EKG changes with exertion that are suggestive but not diagnostic of ischemia. 4. Nuclear imaging shows stress induced ischemia in the anterior septal region. 5. Normal left ventricular systolic function with ejection fraction of greater than 70%. 6. Moderately high risk treadmill nuclear stress test. Signed by : Loki Gutierres MD Electronically Approved : 08/29/2020 18:02:32
== END ==
LOC: NM 09:07
PROVIDERS: ATTEND Internal Medicine Cardiovascular Disease
DX: I25.10 Atherosclerotic heart disease of native coronary artery without angina pectoris (principal); I10 Essential (primary) hypertension; I25.2 Old myocardial infarction
CPT/HCPCS: 78452; 93017; A9500

== ENCOUNTER → 2020-11-01 | Outpatient (CLI) | payer OTHER ==
[~2020-11-01] MED LIST changes: -ISOS30TA4 PO; +ISOS30TA68 PO
[2020-11-03 15:30] LABS: ALPHA 1 0.2 g/dL (0.0-0.4); ALPHA 2 0.7 g/dL (0.4-1.0); ANA INTERP Negative (.); GAMMA 1.2 g/dL (0.4-1.8); PROTEIN TOTAL 7.1 g/dL (6.0-8.5); SPEP AG RATIO 1.3 (0.7-1.7)
== END ==
LOC: LAB 11:18
PROVIDERS: ATTEND Psychiatry & Neurology Neurology with Special Qualifications in Child Neurology
DX: E10.42 Type 1 diabetes mellitus with diabetic polyneuropathy (principal); R20.0 Anesthesia of skin; R53.1 Weakness
CPT/HCPCS: 36415; 82607; 82746; 84165; 85651; 86038

== ENCOUNTER → 2021-01-24 | Outpatient (CLI) | payer OTHER ==
[~2021-01-24] MED LIST changes: -OMEP40CA45 PO; +OMEP40CA7 PO
[2021-01-24 10:49] LABS: ALBUMIN 3.9 g/dL (3.4-5.0); ALBUMIN/GLOBULIN RATIO 1.2 (1.0-1.7); CALCIUM 9.8 mg/dL (8.5-10.1); GFR 75.7; POTASSIUM 5.1 mmol/L (3.5-5.1); TOTAL BILIRUBIN 0.3 mg/dL (0.2-1.0); TOTAL PROTEIN 7.2 g/dL (6.4-8.2)
[2021-01-24 10:59] LABS: CHOLESTEROL/HDL RATIO 3.8
== END ==
LOC: LAB 10:10
PROVIDERS: ATTEND Nurse Practitioner Family
DX: E11.9 Type 2 diabetes mellitus without complications (principal); E78.5 Hyperlipidemia, unspecified
CPT/HCPCS: 36415; 80053; 80061; 83036